=== PATIENT | male | born 1960 | race Caucasian/White ===

== ENCOUNTER → 2016-08-13 | Outpatient (CLI) | payer OTHER ==
[2016-08-13 10:26] LABS: Blood Urea Nitrogen 16 mg/dL (9-20); Lithium 0.7 mmol/L; Non-African American GFR(MDRD) >60 (>60 ml/min/1.73 sqM)
== END | disposition home or self-care (01) ==
LOC: LABWHC1 09:03
PROVIDERS: ATTEND Psychiatry & Neurology Psychiatry
DX: F31.9 Bipolar disorder, unspecified (principal)
CPT/HCPCS: 36415; 80178; 82565; 84439; 84443; 84520

== ENCOUNTER 2018-01-14 06:21 | Day surgery (SDC) | payer BC, OTHER ==
[~2018-01-14 06:21] MED LIST: ALPRAZolam 0.25 MG TAB PO PRN; ALPRAZolam 0.5 MG TAB PO PRN; ASPIRIN 325 MG TAB PO STA; ATORVASTATIN 80 MG TAB PO STA; NITROGLYCERIN SL TABS 0.4 MG TAB SUBLINGUAL PRN; SODIUM CHLORIDE 0.9% 1,000 ML in EMPTY BAG 1 BAG IV ONE
[2018-01-14] MEDS ORDERED: fentaNYL (PF) 50 MCG/ML 2 ML AMP ONE ×3 (07:30→09:44)
[2018-01-14] MEDS ORDERED: VERAPAMIL 2.5 MG/ML 2 ML AMP ONE (07:30)
[2018-01-14] MEDS ORDERED: LIDOCAINE 1% INJ 10MG/ML (20 ML MDV) ONE (07:30)
[2018-01-14] MEDS ORDERED: MIDAZOLAM 2 MG/2 ML VIAL ONE ×2 (07:30→08:21)
[2018-01-14] MEDS ORDERED: HEPARIN SODIUM 1,000 UN/ML (10ML VL) ONE (07:30)
[2018-01-14] MEDS ORDERED: LIDOCAINE 1% (PF) 10MG/ML VIAL SQ ONE (07:46)
[2018-01-14] MEDS: MIDAZOLAM 2 MG/2 ML VIAL IVP ONE ×2 (07:46→08:13)
[2018-01-14] MEDS: fentaNYL (PF) 50 MCG/ML 2 ML AMP IVP ONE ×2 (07:46→08:02)
[2018-01-14] MEDS ORDERED: BIVALIRUDIN BOLUS 250 MG/50 ML IV ONE (07:57)
[2018-01-14] MEDS ORDERED: BIVALIRUDIN 250 MG in SODIUM CHLORIDE 0.9% 50 ML IV ONE ×2 (07:57→08:33)
[2018-01-14] MEDS ORDERED: TICAGRELOR 90 MG TAB ONE (07:59)
[2018-01-14] MEDS ORDERED: TICAGRELOR 90 MG TAB PO ONE (08:01)
[2018-01-14] MEDS: NITROGLYCERIN 1000MCG/10ML SYRINGE INTRACORON ONE ×3 (08:23→08:38)
[2018-01-14] MEDS ORDERED: MIDAZOLAM 2 MG/2 ML VIAL IVP ONE (08:23)
[2018-01-14] MEDS ORDERED: fentaNYL (PF) 50 MCG/ML 2 ML AMP IVP ONE (08:23)
[2018-01-14] MEDS ORDERED: IOPAMIDOL-370 125ML BTL INJ ONE (08:37)
[2018-01-14] MEDS ORDERED: IOPAMIDOL-370 100ML BTL INJ ONE (08:40)
[2018-01-14] MEDS ORDERED: NITROGLYCERIN SL TABS 0.4 MG TAB SUBLINGUAL PRN ×2 (08:46→08:47)
[2018-01-14] MEDS ORDERED: RX INFO: IV CONTRAST WAS GIVEN 1 EACH MISC MISCELLANE PRN (08:47)
[2018-01-14] MEDS ORDERED: MAG HYDROX/AL HYDROX/SIMETH 30 ML CUP PO PRN (08:47)
[2018-01-14] MEDS ORDERED: ATROPINE SULFATE 0.1 MG/ML 10ML SYRINGE IV PRN (08:47)
[2018-01-14] MEDS ORDERED: ZOLPIDEM 5 MG TAB PO PRN (08:47)
[2018-01-14] MEDS ORDERED: SODIUM CHLORIDE 0.9% 1,000 ML IV SCH (09:00)
--- NOTE | 2018-01-14 09:18 | CC ---
CARDIAC CATHETERIZATION REPORT DATE OF SERVICE: 01/14/2018 PERFORMING PHYSICIAN: Jeremiah Mcghee MD. PROCEDURE PERFORMED: 1. Selective right and left coronary angiogram. 2. Left heart catheterization. 3. Successful stenting of the distal right coronary artery using 3.5 x 18 mm Xience drug-eluting stent with an excellent angiographic results. INDICATION: This is a pleasant 57-year-old gentleman with known history of hypertension, dyslipidemia, significant family history of coronary artery disease, as well as significant history of smoking, was experiencing chest discomfort and underwent myocardial perfusion imaging stress test that revealed inferior ischemia. Because of that, heart catheterization was advised. APPROACH: Right radial artery. COMPLICATION: None. LEVEL OF SEDATION: Moderate with sedation length of 59 minutes. PROCEDURE DESCRIPTION: After obtaining an informed consent, the patient was brought to cardiac chemical laboratory technician. The right radial artery was cannulated using micropuncture technique. A micropuncture wire passed easily, then I placed a 6-Togolese sheath in the right radial artery. After that, I gave the patient 2 mg of verapamil IA. Selective right and left coronary angiogram was performed using JR4 and JL3.5 catheters. After that, left heart catheterization was performed using 5-Togolese pigtail catheter. After that I did intervene on the right coronary artery. Please see a separate paragraph for that. SELECTIVE CORONARY ANGIOGRAM: 1. The right coronary artery is a large caliber vessel and it is a dominant vessel. The proximal right is angiographically normal. The mid right has mild disease only and the right distally has eccentric lesion, appeared to be in the range of 70%. This is just before the bifurcation of the right LOCKER ROOM MANAGER and the PLV branches which appeared to be angiographically normal. The left main is angiographically normal. It bifurcates into the circumflex and left anterior descending artery. 2. The left circumflex is a large caliber vessel and it is a nondominant vessel and has mild disease only. 3. The LAD, the proximal LAD appeared to be angiographically normal and gives rise into a large diagonal branch which appeared to be angiographically normal. The mid LAD appeared to have a plaque in the range of 60% to 70%. The LAD distally appeared to be angiographically normal. HEMODYNAMICS: The left ventricular end-diastolic pressure was 12 mmHg and no gradient was identified across the aortic valve. PCI OF THE RIGHT CORONARY ARTERY: Anticoagulation was initiated using Angiomax. Subsequently, I engaged the right using JR4 guide. I wired using a run-through wire. After that, I did balloon angioplasty using 3.0 x 12 mm balloon. I tried to advance a 3.5 x 18 mm stent but the stent will not make the turn to the distal right and because of that, I did double wire the right coronary artery using a whisper wire in addition to the run-through wire. In spite of that, I could not advance the stent on any of the wires. After that, I did wire the right coronary artery using the Ironman, and with Ironman, I was able to get the stent to distal right coronary artery where the stent was positioned under fluoroscopy guidance and deployed under 12 to 14 atmospheres for 20 seconds with the following angiogram showing good angiographic results and reduction of stenosis from 70% to 0%. The procedure at that point was completed without any complication. CONCLUSION: 1. Severe disease involving the right coronary artery. 2. Intermediate to severe disease involving the mid left anterior descending artery. 3. Successful stenting of the distal right coronary artery using 3.5 x 18 mm Xience drug-eluting stent with excellent angiographic results. POSTPROCEDURE MANAGEMENT: 1. If the patient continues to have chest discomfort, I will consider doing an FFR of the left anterior descending artery. 2. Dual anti-platelet therapy. 3. Risk factors modifications. 4. Follow up with the patient. MMEMELYNL / IJN: [id number] /
[2018-01-14] MEDS ORDERED: ACETAMINOPHEN TAB 325 MG TAB ONE (09:26)
[2018-01-14] MEDS ORDERED: fentaNYL (PF) 50 MCG/ML 2 ML AMP IV ONE (09:40)
[2018-01-14 13:52] VITALS: BMI 32.0
[2018-01-14] MEDS: ATORVASTATIN 40 MG TAB PO SCH (14:05)
[2018-01-14] MEDS: METOPROLOL SUCCINATE (ER) 50 MG TAB.ER.24H PO SCH (14:05)
[2018-01-14] MEDS: buPROPion SR 100 MG TABLET.ER PO SCH ×2 (14:05→21:53)
[2018-01-14] MEDS: ISOSORBIDE MONONITRATE ER 30 MG TAB.ER.24H PO SCH (14:05)
[2018-01-14] MEDS: LORazepam 1 MG TAB PO SCH ×2 (14:05→21:53)
[2018-01-14] MEDS: LITHIUM CARBONATE 300 MG CAP PO SCH ×2 (14:05→21:53)
[2018-01-14] MEDS: ASPIRIN 81 MG PO SCH (14:05)
[2018-01-14] MEDS: amLODIPine 2.5 MG TAB PO SCH (14:05)
[2018-01-14] MEDS: TICAGRELOR 90 MG TAB PO SCH ×2 (14:06→21:53)
[2018-01-14 20:45] VITALS: RESP 17; TEMP 97
[2018-01-15 05:35] VITALS: BP 114/71; PULSE 64
[2018-01-15 07:31] LABS: Basophils % (A) 0 %; Eosinophils # (A) 0.3 k/uL (0-0.7); Eosinophils % (A) 3 %; HCT 42.7 % (39.0-53.0); HGB 13.9 gm/dL (13.0-17.5); Lymphocytes # (A) 1.7 k/uL (1.0-4.8); Lymphocytes % (A) 18 %; MCHC 32.6 g/dL (31.0-37.0); MCV 95.2 fL (80.0-100.0); Monocytes # (A) 0.4 k/uL (0-1.0); Monocytes % (A) 4 %; Neutrophils % (A) 74 %; Platelet Count 201 k/uL (150-450); RBC 4.48 m/uL (4.30-5.90); RDW 12.6 % (11.5-15.5); WBC 9.5 k/uL (3.8-10.6)
[2018-01-15 07:39] LABS: Anion Gap 4 mmol/L; Blood Urea Nitrogen 10 mg/dL (9-20); Calcium 9.2 mg/dL (8.4-10.2); Carbon Dioxide 25 mmol/L (22-30); Chloride 109 mmol/L (98-107); Glucose 111 mg/dL (74-99); Potassium 4.4 mmol/L (3.5-5.1); Sodium 138 mmol/L (137-145)
--- NOTE | 2018-01-15 08:34 | DS ---
DISCHARGE SUMMARY ADMISSION DATE: January 14, 2018. DISCHARGE DATE: January 15, 2018 BRIEF HISTORY: This is a pleasant 57-year-old gentleman with hypertension and dyslipidemia, was experiencing chest discomfort and underwent a stress test came in to be equivocal for ischemia. Because of that, heart catheterization was advised. It did show severe disease involving the distal right coronary artery and intermediate to severe disease involving the LAD. The patient underwent successful stenting of the right coronary artery with good angiographic results. The procedure was performed from the right radial artery. He does have right good right radial pulse. The patient is going to be discharged home on dual anti-platelet therapy and I will follow up with the patient in a week in the office. MMODL / IJN: [id number] /
[2018-01-15] MEDS: buPROPion SR 100 MG TABLET.ER PO SCH (08:57)
[2018-01-15] MEDS: LITHIUM CARBONATE 300 MG CAP PO SCH (08:57)
[2018-01-15] MEDS: TICAGRELOR 90 MG TAB PO SCH (08:58)
[2018-01-15] MEDS: ATORVASTATIN 40 MG TAB PO SCH (08:58)
[2018-01-15] MEDS: ISOSORBIDE MONONITRATE ER 30 MG TAB.ER.24H PO SCH (08:58)
[2018-01-15] MEDS: LORazepam 1 MG TAB PO SCH (08:58)
[2018-01-15] MEDS: METOPROLOL SUCCINATE (ER) 50 MG TAB.ER.24H PO SCH (08:58)
[2018-01-15] MEDS: ASPIRIN 81 MG PO SCH (08:58)
[2018-01-15] MEDS: amLODIPine 2.5 MG TAB PO SCH (08:58)
== END 2018-01-15 09:08 | disposition home or self-care (01) ==
LOC: CATHCVL 06:21 → 3SCARD 12:28 → CATHCVL 01-15 09:08
PROVIDERS: ATTEND Internal Medicine Interventional Cardiology
DX: I25.110 Atherosclerotic heart disease of native coronary artery with unstable angina pectoris (principal); R94.39 Abnormal result of other cardiovascular function study; E78.00 Pure hypercholesterolemia, unspecified; I10 Essential (primary) hypertension; F31.9 Bipolar disorder, unspecified; F17.210 Nicotine dependence, cigarettes, uncomplicated; Z82.49 Family history of ischemic heart disease and other diseases of the circulatory system; Z79.82 Long term (current) use of aspirin; Z79.899 Other long term (current) drug therapy
CPT/HCPCS: 93458; 80048; 85025; C9600; C1769 ×4; C1887; C1725 ×2; C1874; C1894; J2250; S0106 ×2; J3010; J0583; J2001; Q9967 ×2

== ENCOUNTER 2019-10-23 16:13 | Inpatient (IN) | payer BC ==
--- NOTE | 2019-10-23 16:34 | ED ---
General Adult HPI - General Chief complaint: Psychiatric Symptoms Stated complaint: Mental Health Time Seen by Provider: 10/23/19 16:22 Source: patient, family, RN notes reviewed Mode of arrival: ambulatory Limitations: no limitations - History of Present Illness Initial comments: Patient is a pleasant 59-year-old male presenting to the emergency department with family with mental health concerns. Patient does have history of mental problems previously. Patient has been off his Ativan for around 10 days. Patient has also been off his lithium for possibly up to a month. Patient has not been sleeping well. Racing thoughts. Patient apparently has been agitated with family. No suicidal or homicidal thoughts. Patient did drink a small amount of alcohol today. 2 or 3 beers. No new physical complaints. - Related Data Home Medications Medication Instructions Recorded Confirmed Atorvastatin Calcium [Lipitor] 40 mg PO DAILY 01/11/18 10/23/19 Isosorbide Mononitrate [Isosorbide 30 mg PO DAILY 01/11/18 10/23/19 Mononitrate ER] Metoprolol Succinate (ER) [Toprol 50 mg PO DAILY 01/11/18 10/23/19 XL] Nitroglycerin Sl Tabs [Nitrostat] 0.4 mg SUBLINGUAL Q5M PRN 01/11/18 10/23/19 amLODIPine [Norvasc] 2.5 mg PO DAILY 01/11/18 10/23/19 buPROPion HCL [Wellbutrin SR] 200 mg PO BID 01/11/18 10/23/19 Cyclobenzaprine [Flexeril] 5 mg PO TID PRN 10/23/19 10/23/19 Gabapentin [Neurontin] 300 mg PO TID PRN 10/23/19 10/23/19 Previous Rx's Medication Instructions Recorded Aspirin 81 mg PO DAILY #90 chew 01/15/18 Allergies Allergy/AdvReac Type Severity Reaction Status Date / Time No Known Allergies Allergy Verified 10/23/19 19:56 Review of Systems ROS Statement: Those systems with pertinent positive or pertinent negative responses have been documented in the HPI. ROS Other: All systems not noted in ROS Statement are negative. Constitutional: Denies: fever Eyes: Denies: eye pain ENT: Denies: ear pain Respiratory: Denies: cough Cardiovascular: Denies: chest pain Endocrine: Denies: fatigue Gastrointestinal: Denies: abdominal pain Genitourinary: Denies: dysuria Musculoskeletal: Denies: back pain Skin: Denies: rash Neurological: Denies: headache Psychiatric: Reports: as per HPI Past Medical History Past Medical History: Chest Pain / Angina, Hyperlipidemia, Hypertension History of Any Multi-Drug Resistant Organisms: None Reported Past Surgical History: Heart Catheterization With Stent, Hernia Repair, Joint Replacement, Orthopedic Surgery Additional Past Surgical History / Comment(s): LT RONAK,rt ankle,. RT SHOULDER SX. COLONOSCOPY Past Anesthesia/Blood Transfusion Reactions: No Reported Reaction Date of Last Stent Placement:: 01-14-18 Past Psychological History: Bipolar Past Alcohol Use History: Occasional Past Drug Use History: None Reported - Past Family History Father Family Medical History: Cancer General Exam Limitations: no limitations General appearance: alert, in no apparent distress Head exam: Present: normocephalic Eye exam: Present: normal appearance Neck exam: Present: normal inspection Respiratory exam: Present: normal lung sounds bilaterally Cardiovascular Exam: Present: regular rate, normal rhythm GI/Abdominal exam: Present: soft. Absent: tenderness Extremities exam: Present: normal inspection Neurological exam: Present: alert, normal gait Psychiatric exam: Present: normal mood. Absent: homicidal ideation, suicidal ideation Skin exam: Present: normal color Course Vital Signs 10/23/19 10/23/19 10/23/19 16:16 16:59 17:43 Temperature 98.0 F Pulse Rate 103 H Pulse Rate [ 104 H Right Pulse Oximetery] Respiratory 18 18 Rate Blood Pressure 188/109 Blood Pressure 182/106 177/99 [Left Arm Sitting] O2 Sat by Pulse 98 96 Oximetry Medical Decision Making - Medical Decision Making Patient seen by mental health services with plan for admission. Positive clinical certificate completed. - Lab Data Lab Results 10/23/19 Range/Units 16:50 Urine Opiates Screen Not Detected (NotDetected) Ur Oxycodone Screen Not Detected (NotDetected) Urine Methadone Screen Not Detected (NotDetected) Ur Propoxyphene Screen Not Detected (NotDetected) Ur Barbiturates Screen Not Detected (NotDetected) U Tricyclic Antidepress Not Detected (NotDetected) Ur Phencyclidine Scrn Not Detected (NotDetected) Ur Amphetamines Screen Not Detected (NotDetected) U Methamphetamines Scrn Not Detected (NotDetected) U Benzodiazepines Scrn Not Detected (NotDetected) Urine Cocaine Screen Not Detected (NotDetected) U Marijuana (THC) Screen Not Detected (NotDetected) Disposition Clinical Impression: Psychosis Disposition: TRANSFER TO PSYCH HOSP/UNIT Is patient prescribed a controlled substance at d/c from ED?: No Referrals: None,Stated [Primary Care Provider] - 1-2 days Decision Time: 20:08
[2019-10-23] MEDS ORDERED: amLODIPine 5 MG TAB PO STA ×2 (16:51→20:34)
[2019-10-23] MEDS ORDERED: METOPROLOL TARTRATE 50 MG TAB PO STA (16:51)
[2019-10-23 17:22] LABS: Amphetamine Screen,Urine Not Detected (NotDetected); Barbiturate Screen,Urine Not Detected (NotDetected); Benzodiazepines Screen,Urine Not Detected (NotDetected); Cocaine Screen,Urine Not Detected (NotDetected); Methadone Screen, Urine Not Detected (NotDetected); Opiate Screen,Urine Not Detected (NotDetected); Oxycodone Screen, Urine Not Detected (NotDetected); Phencyclidine Screen,Urine Not Detected (NotDetected); Tricyclic Antidepressant,Urine Not Detected (NotDetected); Urn Cannabinoid Scrn Not Detected (NotDetected)
[2019-10-23] MEDS ORDERED: LORazepam 1 MG TAB PO STA (20:34)
[2019-10-23] MEDS ORDERED: MAG HYDROX/AL HYDROX/SIMETH 30 ML CUP PO PRN (20:46)
[2019-10-23] MEDS ORDERED: MAGNESIUM HYDROXIDE 2,400 MG/10 ML CUP PO PRN (20:46)
[2019-10-23] MEDS ORDERED: LORazepam 2 MG/ML INJ IM PRN (20:53)
[2019-10-23] MEDS ORDERED: LORazepam 1 MG TAB PO PRN (21:00)
[2019-10-23] MEDS: NICOTINE 14MG/24HR PATCH TRANSDERM SCH (21:26)
[2019-10-23] MEDS ORDERED: ZIPRASIDONE 20 MG VIAL IM PRN (22:00)
[2019-10-24 08:44] LABS: Basophils % (A) 1 %; Eosinophils # (A) 0.1 k/uL (0-0.7); Eosinophils % (A) 2 %; HCT 47.3 % (39.0-53.0); HGB 15.7 gm/dL (13.0-17.5); Lymphocytes # (A) 1.4 k/uL (1.0-4.8); Lymphocytes % (A) 17 %; MCH 30.1 pg (25.0-35.0); MCHC 33.1 g/dL (31.0-37.0); MCV 90.8 fL (80.0-100.0); Mean Platelet Volume 7.2; Monocytes # (A) 0.6 k/uL (0-1.0); Monocytes % (A) 7 %; Neutrophils # (A) 6.3 k/uL (1.3-7.7); Neutrophils % (A) 73 %; Platelet Count 212 k/uL (150-450); RBC 5.21 m/uL (4.30-5.90); RDW 12.1 % (11.5-15.5); WBC 8.7 k/uL (3.8-10.6)
[2019-10-24 08:58] LABS: ALT 30 U/L (4-49); AST 33 U/L (17-59); African American GFR (CKD) >90 (>60 ml/min/1.73 sqM); Albumin 4.3 g/dL (3.5-5.0); Alkaline Phosphatase 113 U/L (38-126); Anion Gap 8 mmol/L; Blood Urea Nitrogen 9 mg/dL (9-20); Calcium 9.4 mg/dL (8.4-10.2); Carbon Dioxide 23 mmol/L (22-30); Chloride 100 mmol/L (98-107); Cholesterol 122 mg/dL (<200); Glucose 122 mg/dL (74-99); HDL Cholesterol 47 mg/dL (40-60); LDL Cholesterol,Calculated 59 mg/dL (0-99); Non-African American GFR(CKD) >90 (>60 ml/min/1.73 sqM); Potassium 4.2 mmol/L (3.5-5.1); Sodium 131 mmol/L (137-145); Total Protein 6.9 g/dL (6.3-8.2); Triglycerides 79 mg/dL (<150)
[2019-10-24] MEDS: ASPIRIN 81 MG PO SCH (10:04)
[2019-10-24] MEDS: NICOTINE 14MG/24HR PATCH TRANSDERM SCH (10:04)
[2019-10-24] MEDS: ISOSORBIDE MONONITRATE ER 30 MG TAB.ER.24H PO SCH (10:05)
[2019-10-24] MEDS: ATORVASTATIN 40 MG TAB PO SCH (10:05)
[2019-10-24] MEDS: METOPROLOL SUCCINATE (ER) 50 MG TAB.ER.24H PO SCH (10:05)
[2019-10-24] MEDS: amLODIPine 2.5 MG TAB PO SCH (10:05)
[2019-10-24] MEDS: LURASIDONE 40 MG TAB PO SCH (10:07)
[2019-10-24] MEDS: ACETAMINOPHEN TAB 325 MG TAB PO PRN ×2 (11:16→23:28)
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
--- NOTE | 2019-10-24 14:48 | P.CONS ---
History of Present Illness - Reason for Consult Consult date: 10/24/19 Medical management Requesting physician: Keyanna Mcguire - Chief Complaint Mind racing - History of Present Illness Consultation: This is a pleasant 59-year-old patient of Dr. hicks. Chronic stable medical conditions include coronary artery disease with a stent in 2018, hypertension, hyperlipidemia. Patient has an ongoing diagnosis bipolar disorder. Patient started taking the lithium a few weeks ago. He thought he is feeling fine. Patient presents with dextrose symptoms. Finances parts a getting mixed up. Mind is racing. No nipple to concentrate. He is having difficulty with organizing at possible status. He and his family lives in assisted living called [facility] [place]. He has been hospitalized previously for bipolar depression. No fever no chills. Occasional wheezing. Is a smoker. Appetite has been okay otherwise Review of systems: GEN.: None EYES: None HEENT: None NECK: None RESPIRATORY: Occasional wheezing CARDIOVASCULAR: None GASTROINTESTINAL: None GENITOURINARY: None MUSCULOSKELETAL: None LYMPHATICS: None HEMATOLOGICAL: None PSYCHIATRY: As above NEUROLOGICAL: None Past medical history to include: Coronary artery disease with stent, hypertension, hyperlipidemia, bipolar. Social history: Smokes anywhere from half to a pack a day for close to 43 years. No alcohol. . He has family events assisted living called [place]. Physical examination: VITAL SIGNS: 98.2, 77, 18, 135 was 75, 99% room air GENERAL: BMI 32.8, sitting at edge of the bed, comfortable. EYES: Pupils equal. Conjunctiva normal. HEENT: External appearance of nose and ears normal, oral cavity grossly normal. NECK: JVD not raised; masses not palpable. HEART: First and second heart sounds are normal; no edema. LUNGS: Respiratory rate normal; decreased breath sounds, mild wheezing. ABDOMEN: Soft, nontender, liver spleen not palpable, no masses palpable. PSYCH: Alert and oriented x3; mood and affect a bit lowl. NEUROLOGICAL: Cranial nerves grossly intact; no facial asymmetry, power and sensation grossly intact. LYMPHATICS: No lymph nodes palpable in the axilla and neck INVESTIGATIONS, reviewed in the clinical context: White count 8.7 hemoglobin 15.7 platelets 212 potassium 4.2 creatinine 0.79 TSH 0.9 Urine drug screen negative Assessment: -Bipolar disorder with kevin episode -Coronary artery disease with stent in January 2019 -Essential hypertension -Hyperlipidemia -Obesity BMI 32.8 -COPD in a current smoker -Chronic nicotine dependence cigarette and cigar smoker Plan: Home medications were continued. Care was discussed with the patient. We'll start this patient on Spiriva while he is here. Nicotine patch. Patient to bhakti low-up with his family doctor for discharge. Thank you Dr. Mcguire Past Medical History Past Medical History: Chest Pain / Angina, Hyperlipidemia, Hypertension History of Any Multi-Drug Resistant Organisms: None Reported Past Surgical History: Heart Catheterization With Stent, Hernia Repair, Joint Replacement, Orthopedic Surgery Additional Past Surgical History / Comment(s): LT RONAK,rt ankle,. RT SHOULDER SX. COLONOSCOPY Past Anesthesia/Blood Transfusion Reactions: No Reported Reaction Date of Last Stent Placement:: 01-14-18 Past Psychological History: Bipolar Smoking Status: Current every day smoker Past Alcohol Use History: Occasional Additional Past Alcohol Use History / Comment(s): SMOKES ABOUT 1/2PPD SINCE AGE 17. states "drinks less than 14 drinks per week usually" Past Drug Use History: None Reported - Past Family History Father Family Medical History: Cancer Medications and Allergies Home Medications Medication Instructions Recorded Confirmed Type Atorvastatin Calcium [Lipitor] 40 mg PO DAILY 01/11/18 10/23/19 History Isosorbide Mononitrate [Isosorbide 30 mg PO DAILY 01/11/18 10/23/19 History Mononitrate ER] Metoprolol Succinate (ER) [Toprol 50 mg PO DAILY 01/11/18 10/23/19 History XL] Nitroglycerin Sl Tabs [Nitrostat] 0.4 mg SUBLINGUAL Q5M PRN 01/11/18 10/23/19 History amLODIPine [Norvasc] 2.5 mg PO DAILY 01/11/18 10/23/19 History buPROPion HCL [Wellbutrin SR] 200 mg PO BID 01/11/18 10/23/19 History Aspirin 81 mg PO DAILY #90 chew 01/15/18 10/23/19 Rx [place] Carbonate [[place] 300 mg PO BID 10/23/19 10/23/19 History Carbonate ER] Allergies Allergy/AdvReac Type Severity Reaction Status Date / Time No Known Allergies Allergy Verified 10/23/19 21:39 Physical Exam Vitals: Vital Signs Temp Pulse Pulse Resp BP BP Pulse Ox 10/24/19 06:55 98.2 F 83 16 145/82 99 10/23/19 21:06 97.1 F L 82 16 145/83 96 10/23/19 20:20 78 160/98 10/23/19 17:43 177/99 10/23/19 16:59 104 H 18 182/106 96 10/23/19 16:16 98.0 F 103 H 18 188/109 98 Intake and Output 10/23/19 10/24/19 10/24/19 22:59 06:59 14:59 Other: Weight 106.594 kg Results CBC & Chem 7: 10/24/19 08:17 10/24/19 08:17 Labs: Abnormal Lab Results - Last 24 Hours (Table) 10/24/19 Range/Units 08:17 Sodium 131 L (137-145) mmol/L Glucose 122 H (74-99) mg/dL
[2019-10-24] MEDS: NICOTINE 21MG/24HR PATCH TRANSDERM SCH (15:33)
[2019-10-24] MEDS: ALBUTEROL HFA INHALER INHALATION SCH (20:48)
--- NOTE | 2019-10-25 09:14 | P.PN ---
Subjective Progress Note Date: 10/25/19 Principal diagnosis: Bipolar 1 manic Subjective: The patient says he slept well and he talked his last night and felt he was making more sense says he feels less depressed little bit more upbeat Objective: The patient did go to groups but had to leave early because he was so tired. When he was compliant talking with peers and staff but mostly quiet and withdrawn Vital signs: Temperature 97.8 heart rate 73 respirations 16 blood pressure 142/78 O2 sat 99 Labs: Hematology was fine general chemistry shows sugar slightly up at 122 urine tox was negative Mental status exam: The patient is alert gait and station normal affect somewhat flat good eye contact reasonable response time he is not making comments about random distractions in the room and did a better job of staying on topic. He denies any hallucinations or delusions says he still a little depressed but bet ter than he was. He is dressed in hospital gown but he asked his to bring in some more clothes for him. Assessment patient is already responding to 40 mg of Latuda which I chose because it does not seem to make diabetes worse and works rapidly on manic symptoms. I don't think he should go back on lithium he been on it for a long period of time starting to get older which makes it somewhat unsafe. Plan continue the Latuda I think in a day or 2 he should be calm enough for discharge Objective - Vital Signs Vital signs: Vital Signs Temp 97.8 F 10/25/19 06:28 Pulse 73 10/25/19 06:28 Resp 16 10/25/19 06:28 BP 142/78 10/25/19 06:28 Pulse Ox 99 10/24/19 06:55 - Labs CBC & Chem 7: 10/24/19 08:17 10/24/19 08:17
[2019-10-25] MEDS: ALBUTEROL HFA INHALER INHALATION SCH ×3 (09:24→20:11)
[2019-10-25] MEDS: amLODIPine 2.5 MG TAB PO SCH (09:25)
[2019-10-25] MEDS: ASPIRIN 81 MG PO SCH (09:25)
[2019-10-25] MEDS: NICOTINE 21MG/24HR PATCH TRANSDERM SCH (09:26)
[2019-10-25] MEDS: LURASIDONE 40 MG TAB PO SCH (09:26)
[2019-10-25] MEDS: METOPROLOL SUCCINATE (ER) 50 MG TAB.ER.24H PO SCH (09:26)
[2019-10-25] MEDS: ISOSORBIDE MONONITRATE ER 30 MG TAB.ER.24H PO SCH (09:26)
[2019-10-25] MEDS: ATORVASTATIN 40 MG TAB PO SCH (09:26)
[2019-10-26] MEDS: amLODIPine 2.5 MG TAB PO SCH (06:29)
[2019-10-26] MEDS: METOPROLOL SUCCINATE (ER) 50 MG TAB.ER.24H PO SCH (06:29)
[2019-10-26] MEDS: ISOSORBIDE MONONITRATE ER 30 MG TAB.ER.24H PO SCH (06:30)
[2019-10-26] MEDS: ALBUTEROL HFA INHALER INHALATION SCH ×3 (09:12→19:35)
[2019-10-26] MEDS: ATORVASTATIN 40 MG TAB PO SCH (09:13)
[2019-10-26] MEDS: ASPIRIN 81 MG PO SCH (09:13)
[2019-10-26] MEDS: LURASIDONE 40 MG TAB PO SCH (09:13)
[2019-10-26] MEDS: NICOTINE 21MG/24HR PATCH TRANSDERM SCH (09:13)
[2019-10-26] MEDS ORDERED: LURASIDONE 20 MG TAB PO ONE (10:30)
[2019-10-26] MEDS: LORazepam 1 MG TAB PO PRN (20:08)
[2019-10-26] MEDS ORDERED: amLODIPine 5 MG TAB PO SCH (21:00)
[2019-10-26 22:47] VITALS: RESP 18
[2019-10-27 02:10] VITALS: TEMP 98.2
[2019-10-27] MEDS: LORazepam 1 MG TAB PO PRN (04:36)
[2019-10-27] MEDS: ALBUTEROL HFA INHALER INHALATION SCH (08:34)
[2019-10-27] MEDS: NICOTINE 21MG/24HR PATCH TRANSDERM SCH (08:37)
[2019-10-27] MEDS: ASPIRIN 81 MG PO SCH (08:38)
[2019-10-27] MEDS: ISOSORBIDE MONONITRATE ER 30 MG TAB.ER.24H PO SCH (08:38)
[2019-10-27] MEDS: METOPROLOL SUCCINATE (ER) 50 MG TAB.ER.24H PO SCH (08:38)
[2019-10-27] MEDS: ATORVASTATIN 40 MG TAB PO SCH (08:38)
[2019-10-27] MEDS ORDERED: LURASIDONE 20 MG TAB PO SCH (09:00)
[2019-10-27 10:30] VITALS: BP 163/91; PULSE 73
--- NOTE | 2019-10-27 11:43 | P.DS ---
Providers Date of admission: 10/23/19 20:38 Expected date of discharge: 10/27/19 Attending physician: Keyanna Mcguire MD Consults: 10/23/19 20:46 Consult Physician Routine Consulting Provider: Yves Phipps Consult Reason/Comments: H&P and medical and HTN Do you want consulting provider notified?: Yes Primary care physician: Kd Mayfield - Discharge Diagnosis(es) (1) Bipolar 1 disorder Current Visit: Yes Status: Acute Priority: High (2) Nicotine dependence Current Visit: Yes Status: Acute Priority: Low Hospital Course: Admission HPI: Patient was admitted by Dr. Mcguire "Patient is a pleasant 59-year-old male presenting to the emergency department with family with mental health concerns. Patient does have history of being diagnosed with bipolar disorder. Patient has been off his Ativan for around 10 days. Patient has also been off his lithium for possibly up to a month. He said that he was told that if you haven't had a manic episode for 5 years you do not need to take lithium. Patient has not been sleeping well. Racing thoughts. Patient apparently has been agitated with family. No suicidal or homicidal thoughts. 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 Patient did drink a small amount of alcohol today. 2 or 3 beers. The only thing the patient is aware of is that he cannot organize any cannot organize his speech or his tasks or where things belong. He says he is able to sleep okay however his perception of his function is impaired. Patient is supposed to be on Wellbutrin SR 200 twice a day but he does forget doses from time to time, Flexeril 5 milligrams 3 times a day as needed for aches and pains he has not been using that lately because of back pain seem to vanish a week ago.(I think he is racing brain is not able to focus on his aches and pains which is typical for people in a manic state), Neurontin 300 3 times a day, and lithium which he has not been taking , and Ativan which he ran out of 10 days ago and at his age it would be goncalves for him just to stay off of it. The patient had his first major episode in 1984 diagnosed with major depressive disorder and started on Tofranil. He was rehospitalized for depression in 197908/27/1995 and 2000. So more along the line he picked up the diagnosis of bipolar but denies that he was ever manic cannot remember any time where he didn't need to sleep. He cannot remember what medicines he has been tried on in the past other than the Tofranil and the current medicines." Hospital course: Upon admission to the unit patient was initially withdrawing from his medications, having racing thoughts and apparently agitated at home. Patient was however directable and agreeable to commence treatment. Patient got along well with other patients on the unit and followed unit protocol. Patient was compliant with the medications and denied any side effects throughout hospital course. Patient was started on latuda and titrated up to dose of 60 mg daily with breakfast for mood stabilization/depression, patient was also re-started on Ativan 1 mg daily when necessary for anxiety. Patient spoke of his stressors and engaged in therapy both group and individual. Patient was also seen by medical team for history and physical exam. Throughout the course of the hosp italization patient gradually improved with regards to mood, anxiety, sleep and became more future oriented with improved insight and judgment. On the day of discharge patient denied any suicidal or homicidal ideations intent or plan denied any auditory or visual hallucinations. Patient endorsed wanting to live for his health and family. The patient denied any access to guns or weapons. Patient denied any paranoia and did not endorse any delusions. Patient does not have a significant history of substance abuse however was counseled on abstaining from all substances including alcohol and marijuana. Patient was also counseled on the medications and need for regular compliance and was encouraged to follow-up with their outpatient appointment for mental health and also for primary care. Prior to discharge a family meeting will be arranged by director of social services to answer any questions and ensure safety upon discharge. Patient will be following up with [facility] for outpatient psychiatric follow-up. Mental status exam: General Appearance: Patient appears to be stated age is alert, pleasant, and cooperative. Patient is in no acute distress and has fair hygiene and grooming Behavior: Patient is calmly seated without any agitated behavior. Cooperative today. Speech: Patient's speech is fluent and nonpressured. Mood/Affect: Patient reports their mood is "much better", affect is congruent a nd euthymic. Suicidality/Homicidality: Patient denies having any suicidal or homicidal ideation intent or plan. Perceptions: Patient denies any auditory or visual hallucinations. Though content/process: There is no evidence of any delusional thought content and thought process is linear and goal-directed. more future oriented Memory and concentration: AOX3, grossly intact for the purposes of this session. Can spell "WORLD" backwards correctly. Judgment and insight: Improved with guarded prognosis Impression: Bipolar disorder type I Nicotine dependence Plan: -Continue with discharge today as patient has improved and stabilized psychiatrically and is not currently an imminent threat to himself and/or others. -Continue medications: Patient to be continued on LAtuda 60mg daily with br eakfast for mood stabilization/depression. We'll also give patient a 10 day supply of Ativan 1 mg daily when necessary for anxiety. This will give enough time for patient to go to his outpatient appointment to continue on with treatment. Maps was reviewed prior to giving prescription. -Patient was counseled on the need for medication compliance and appropriate follow-up at mental health and also primary care for medical issues. Patient verbalized understanding and agreed. -Social work to arrange for and conduct family meeting to ensure safety upon discharge and answer any questions/concerns. Social work also to arrange for patients follow up appointments with [facility] for psychiatric care along with follow up with primary care provider. -Patient counseled on abstaining from recreational drugs and marijuana and alcohol. Was informed/educated on the adverse effects on their physical and mental health. Patient verbally agreed and understood. -Patient was instructed to return to the hospital or seek immediate medical care if their psychiatric or medical symptoms do worsen or reoccur. Allergies Allergy/AdvReac Type Severity Reaction Status Date / Time No Known Allergies Allergy Verified 10/23/19 21:39 Laboratory Results WBC 8.7 k/uL (3.8-10.6) 10/24/19 08:17 RBC 5.21 m/uL (4.30-5.90) 10/24/19 08:17 Hgb 15.7 gm/dL (13.0-17.5) 10/24/19 08:17 Hct 47.3 % (39.0-53.0) 10/24/19 08:17 MCV 90.8 fL (80.0-100.0) 10/24/19 08:17 MCH 30.1 pg (25.0-35.0) 10/24/19 08:17 MCHC 33.1 g/dL (31.0-37.0) 10/24/19 08:17 RDW 12.1 % (11.5-15.5) 10/24/19 08:17 Plt Count 212 k/uL (150-450) 10/24/19 08:17 Neutrophils % 73 % 10/24/19 08:17 Lymphocytes % 17 % 10/24/19 08:17 Monocytes % 7 % 10/24/19 08:17 Eosinophils % 2 % 10/24/19 08:17 Basophils % 1 % 10/24/19 08:17 Neutrophils # 6.3 k/uL (1.3-7.7) 10/24/19 08:17 Lymphocytes # 1.4 k/uL (1.0-4.8) 10/24/19 08:17 Monocytes # 0.6 k/uL (0-1.0) 10/24/19 08:17 Eosinophils # 0.1 k/uL (0-0.7) 10/24/19 08:17 Basophils # 0.0 k/uL (0-0.2) 10/24/19 08:17 Sodium 131 mmol/L (137-145) L 10/24/19 08:17 Potassium 4.2 mmol/L (3.5-5.1) 10/24/19 08:17 Chloride 100 mmol/L (98-107) 10/24/19 08:17 Carbon Dioxide 23 mmol/L (22-30) 10/24/19 08:17 Anion Gap 8 mmol/L 10/24/19 08:17 BUN 9 mg/dL (9-20) 10/24/19 08:17 Creatinine 0.79 mg/dL (0.66-1.25) 10/24/19 08:17 Est GFR (CKD-EPI)AfAm >90 (>60 ml/min/1.73 sqM) 10/24/19 08:17 Est GFR (CKD-EPI)NonAf >90 (>60 ml/min/1.73 sqM) 10/24/19 08:17 Glucose 122 mg/dL (74-99) H 10/24/19 08:[address] Glu mg/dL 126 10/24/19 08:17 Hemoglobin A1c 6.0 % (4.0-6.0) 10/24/19 08:17 Calcium 9.4 mg/dL (8.4-10.2) 10/24/19 08:17 Total Bilirubin 1.0 mg/dL (0.2-1.3) 10/24/19 08:17 AST 33 U/L (17-59) 10/24/19 08:17 ALT 30 U/L (4-49) 10/24/19 08:17 Alkaline Phosphatase 113 U/L (38-126) 10/24/19 08:17 Total Protein 6.9 g/dL (6.3-8.2) 10/24/19 08:17 Albumin 4.3 g/dL (3.5-5.0) 10/24/19 08:17 Triglycerides 79 mg/dL (<150) 10/24/19 08:17 Cholesterol 122 mg/dL (<200) 10/24/19 08:17 LDL Cholesterol, Calc 59 mg/dL (0-99) 10/24/19 08:17 HDL Cholesterol 47 mg/dL (40-60) 10/24/19 08:17 TSH 0.968 mIU/L (0.465-4.680) 10/24/19 08:17 Urine Opiates Screen Not Detected (NotDetected) 10/23/19 16:50 Ur Oxycodone Screen Not Detected (NotDetected) 10/23/19 16:50 Urine Methadone Screen Not Detected (NotDetected) 10/23/19 16:50 Ur Propoxyphene Screen Not Detected (NotDetected) 10/23/19 16:50 Ur Barbiturates Screen Not Detected (NotDetected) 10/23/19 16:50 U Tricyclic Antidepress Not Detected (NotDetected) 10/23/19 16:50 Ur Phencyclidine Scrn Not Detected (NotDetected) 10/23/19 16:50 Ur Amphetamines Screen Not Detected (NotDetected) 10/23/19 16:50 U Methamphetamines Scrn Not Detected (NotDetected) 10/23/19 16:50 U Benzodiazepines Scrn Not Detected (NotDetected) 10/23/19 16:50 Urine Cocaine Screen Not Detected (NotDetected) 10/23/19 16:50 U Marijuana (THC) Screen Not Detected (NotDetected) 10/23/19 16:50 Vital Signs Temp 98.2 F 10/27/19 02:09 Pulse 73 10/27/19 10:29 Resp 18 10/27/19 02:09 BP 163/91 10/27/19 10:29 Pulse Ox 99 10/24/19 06:55 Patient Condition at Discharge: Stable Plan - Discharge Summary Discharge Rx Participant: No New Discharge Prescriptions: New LORazepam [Ativan] 1 mg PO DAILY PRN 10 Days #10 tab PRN Reason: Anxiety Nicotine 21Mg/24Hr Patch [Habitrol] 1 patch TRANSDERM DAILY 14 Days patch Lurasidone HCl [Latuda] 60 mg PO DAILY 30 Days tab amLODIPine [Norvasc] 5 mg PO HS 30 Days tab Acetaminophen Tab [Tylenol] 650 mg PO Q4HR PRN tab PRN Reason: Pain/Discomfort Albuterol Inhaler [Ventolin Hfa Inhaler] 2 puff INHALATION RT-TID #0 puff Continue Nitroglycerin Sl Tabs [Nitrostat] 0.4 mg SUBLINGUAL Q5M PRN PRN Reason: Chest Pain Metoprolol Succinate (ER) [Toprol XL] 50 mg PO DAILY Isosorbide Mononitrate [Isosorbide Mononitrate ER] 30 mg PO DAILY Atorvastatin Calcium [Lipitor] 40 mg PO DAILY Aspirin 81 mg PO DAILY #90 chew Discontinued amLODIPine [Norvasc] 2.5 mg PO DAILY buPROPion HCL [Wellbutrin SR] 200 mg PO BID Santel Carbonate [Santel Carbonate ER] 300 mg PO BID Discharge Medication List Atorvastatin Calcium [Lipitor] 40 mg PO DAILY 01/11/18 [History] Isosorbide Mononitrate [Isosorbide Mononitrate ER] 30 mg PO DAILY 01/11/18 [History] Metoprolol Succinate (ER) [Toprol XL] 50 mg PO DAILY 01/11/18 [History] Nitroglycerin Sl Tabs [Nitrostat] 0.4 mg SUBLINGUAL Q5M PRN 01/11/18 [History] Aspirin 81 mg PO DAILY #90 chew 01/15/18 [Rx] Acetaminophen Tab [Tylenol] 650 mg PO Q4HR PRN tab 10/27/19 [Rx] Albuterol Inhaler [Ventolin Hfa Inhaler] 2 puff INHALATION RT-TID #0 puff 10/27/19 [Rx] LORazepam [Ativan] 1 mg PO DAILY PRN 10 Days #10 tab 10/27/19 [Rx] Lurasidone HCl [Latuda] 60 mg PO DAILY 30 Days tab 10/27/19 [Rx] Nicotine 21Mg/24Hr Patch [Habitrol] 1 patch TRANSDERM DAILY 14 Days patch 10/27/19 [Rx] amLODIPine [Norvasc] 5 mg PO HS 30 Days tab 10/27/19 [Rx] Follow up Appointment(s)/Referral(s): [facility]Outside] - 11/02/19 2:00 pm (Appointment 11/02/19 at 2 pm with Jeffrey Martin.) None,Stated [REFERRING] - 1-2 days Activity/Diet/Wound Care/Special Instructions: Activity and diet as tolerated. Avoid the use of street drugs and alcohol. Take all medications as prescribed. When you are in need of refills on your medications please contact your medical provider and/or outpatient psychiatrist to have this done. Please go to scheduled outpatient appointment for aftercare treatment. If symptoms return or become worse, call the crisis line at and/or go to the nearest emergency room for evaluation. Discharge Disposition: HOME SELF-CARE
== END 2019-10-27 12:57 | disposition home or self-care (01) | DRG 885 ==
LOC: EC 16:13 → 3MHU 20:38
PROVIDERS: ADMIT Psychiatry & Neurology Psychiatry; ATTEND Psychiatry & Neurology Psychiatry
DX: F31.2 Bipolar disorder, current episode manic severe with psychotic features (principal); E66.9 Obesity, unspecified; F41.9 Anxiety disorder, unspecified; E78.5 Hyperlipidemia, unspecified; I10 Essential (primary) hypertension; M54.9 Dorsalgia, unspecified; Z68.32 Body mass index [BMI] 32.0-32.9, adult; J44.9 Chronic obstructive pulmonary disease, unspecified; I25.10 Atherosclerotic heart disease of native coronary artery without angina pectoris; F17.210 Nicotine dependence, cigarettes, uncomplicated; F17.290 Nicotine dependence, other tobacco product, uncomplicated; Z71.6 Tobacco abuse counseling; Z79.82 Long term (current) use of aspirin; Z79.899 Other long term (current) drug therapy; Z95.5 Presence of coronary angioplasty implant and graft; Z96.641 Presence of right artificial hip joint; Z87.19 Personal history of other diseases of the digestive system; Z87.39 Personal history of other diseases of the musculoskeletal system and connective tissue; Z98.890 Other specified postprocedural states
CPT/HCPCS: 80053; 80061; 80306; 82075; 83036; 84443; 85025; 99285

== ENCOUNTER 2019-11-18 19:41 | Emergency (ER) | payer BC ==
[2019-11-18 20:00] VITALS: RESP 18; TEMP 97.5
--- NOTE | 2019-11-18 21:28 | ED ---
General Adult HPI - General Chief complaint: Recheck/Abnormal Lab/Rx Stated complaint: HTN Time Seen by Provider: 11/18/19 20:02 Source: patient Mode of arrival: ambulatory Limitations: no limitations - History of Present Illness Initial comments: 59-year-old male patient is brought to the emergency department today at the request of his for psychiatric evaluation. believes the patient is acting very fearful, paranoid, and suspicious. Is concerned his actions are causing his blood pressure to increase. Patient reports that he wanted to be weaned off his psychiatric medication because he had been taking it a long time and he thought maybe it was no longer necessary. States he started the process about a month ago. Patient believes that his symptoms are increasing due to withdrawal symptoms rather than due to a need for medication. Patient states that he has been having a lot of social anxiety, has been fearful of going to the doctor due to there being a lot of "cars with their lights on" in the parkinglot. He states that he believes he may be being stalked by another psychiatric patient he met when admitted to at his last admission. He reports that todays argument with his started when he was "praying in colors over the veterans at the local [place]". Patient states that he is having some trouble sleeping. Denies any suicidal or homicidal ideation. He believes that his actions and reactions to situations are reasonable. He denies any current physical symptoms or concerns. Patient denies any recent rash, fever, chills, cough, shortness of breath, chest pain, abdominal pain, nausea, vomiting, diarrhea, constipation, back pain, numbness, tingling, dizziness, weakness, hematuria, dysuria, urinary urgency, urinary frequency, headache, visual changes, or any other complaints. - Related Data Home Medications Medication Instructions Recorded Confirmed Atorvastatin Calcium [Lipitor] 40 mg PO DAILY 01/11/18 10/23/19 Isosorbide Mononitrate [Isosorbide 30 mg PO DAILY 01/11/18 10/23/19 Mononitrate ER] Metoprolol Succinate (ER) [Toprol 50 mg PO DAILY 01/11/18 10/23/19 XL] Nitroglycerin Sl Tabs [Nitrostat] 0.4 mg SUBLINGUAL Q5M PRN 01/11/18 10/23/19 Previous Rx's Medication Instructions Recorded Aspirin 81 mg PO DAILY #90 chew 01/15/18 Acetaminophen Tab [Tylenol] 650 mg PO Q4HR PRN tab 10/27/19 Albuterol Inhaler [Ventolin Hfa 2 puff INHALATION RT-TID #0 puff 10/27/19 Inhaler] LORazepam [Ativan] 1 mg PO DAILY PRN 10 Days #10 tab 10/27/19 Lurasidone HCl [Latuda] 60 mg PO DAILY 30 Days tab 10/27/19 Nicotine 21Mg/24Hr Patch [Habitrol] 1 patch TRANSDERM DAILY 14 Days 10/27/19 patch amLODIPine [Norvasc] 5 mg PO HS 30 Days tab 10/27/19 Allergies Allergy/AdvReac Type Severity Reaction Status Date / Time No Known Allergies Allergy Verified 11/18/19 20:00 Review of Systems ROS Statement: Those systems with pertinent positive or pertinent negative responses have been documented in the HPI. ROS Other: All systems not noted in ROS Statement are negative. Past Medical History Past Medical History: Chest Pain / Angina, Hyperlipidemia, Hypertension History of Any Multi-Drug Resistant Organisms: None Reported Past Surgical History: Heart Catheterization With Stent, Hernia Repair, Joint Replacement, Orthopedic Surgery Additional Past Surgical History / Comment(s): LT RONAK,rt ankle,. RT SHOULDER SX. COLONOSCOPY Past Anesthesia/Blood Transfusion Reactions: No Reported Reaction Date of Last Stent Placement:: 01-14-18 Past Psychological History: Bipolar Smoking Status: Current every day smoker Past Alcohol Use History: Occasional Past Drug Use History: None Reported - Past Family History Father Family Medical History: Cancer General Exam Limitations: no limitations General appearance: alert, in no apparent distress, other (This is a well- developed, well-nourished adult male patient in no acute distress. Vital signs upon presentation are temperature 97.5F, pulse 83, respirations 18, blood pressure 186/111, pulse ox 99% on room air.) Eye exam: Present: normal appearance, PERRL, EOMI. Absent: scleral icterus, conjunctival injection, periorbital swelling ENT exam: Present: normal exam, normal oropharynx, mucous membranes moist Respiratory exam: Present: normal lung sounds bilaterally. Absent: respiratory distress, wheezes, rales, rhonchi, stridor Cardiovascular Exam: Present: regular rate, normal rhythm, normal heart sounds. Absent: systolic murmur, diastolic murmur, rubs, gallop, clicks GI/Abdominal exam: Present: soft, normal bowel sounds. Absent: distended, tenderness, guarding, rebound, rigid Neurological exam: Present: alert, oriented X3, CN II-XII intact Psychiatric exam: Present: normal affect, normal mood. Absent: homicidal ideation, suicidal ideation Skin exam: Present: warm, dry, intact, normal color. Absent: rash Course Vital Signs 11/18/19 11/18/19 19:56 21:31 Temperature 97.5 F L Pulse Rate 83 87 Respiratory 18 18 Rate Blood Pressure 186/111 184/101 O2 Sat by Pulse 99 98 Oximetry Medical Decision Making - Medical Decision Making 59-year-old male patient is brought to the emergency department for psychiatric evaluation at the request of his . She did fill out a petition and was quite concerned that he is experiencing a lot of paranoia, delusions, and has been very fearful. She is also concerned due to his blood pressure. Physical examination is unremarkable. Blood pressure is elevated, we did give a dose of his home medication. Patient is very calm and cooperative. He denies any suicidal or homicidal ideation. Patient does express some situations in which he may be paranoid and unreasonably fearful but the situations do not seem to be dangerous for him. Patient was cleared medically and evaluated by emergency psychiatric services. The case was discussed with the agricultural education instructor psychiatrist and it is felt that the patient would be better served by outpatient follow up. Patient does not seem to be a threat to himself or others at this time. He will be discharged to follow up with Dr. Mayfield in 1-2 days. He is also directed to obtain a new psychiatrist. Patient is agreeable with this plan and verbalizes understanding of return parameters. Disposition Clinical Impression: Anxiety, Paranoia Disposition: HOME SELF-CARE Condition: Good Instructions (If sedation given, give patient instructions): Generalized Anxiety Disorder (ED) Additional Instructions: Follow-up with your primary care physician for recheck as soon as possible. Return to the emergency department immediately for any new, worsening, or concerning symptoms. Is patient prescribed a controlled substance at d/c from ED?: No Referrals: Kd Mayfield MD [Primary Care Provider] - 1-2 days Time of Disposition: 21:38
[2019-11-18 21:32] VITALS: BP 184/101; PULSE 87
[2019-11-18] MEDS ORDERED: amLODIPine 5 MG TAB PO STA (21:36)
== END 2019-11-18 21:52 | disposition home or self-care (01) ==
LOC: EC 19:41
DX: F41.9 Anxiety disorder, unspecified (principal); F22 Delusional disorders; I10 Essential (primary) hypertension; E78.5 Hyperlipidemia, unspecified; I20.9 Angina pectoris, unspecified; F17.200 Nicotine dependence, unspecified, uncomplicated; Z79.899 Other long term (current) drug therapy
CPT/HCPCS: 82075; 99284

== ENCOUNTER 2019-11-19 15:44 | Emergency (ER) | payer BC ==
--- NOTE | 2019-11-19 16:06 | ED ---
Psych HPI - General Chief Complaint: Psychiatric Symptoms Stated Complaint: ETOH/bipolar Time Seen by Provider: 11/19/19 16:00 Source: EMS, RN notes reviewed, old records reviewed Mode of arrival: EMS Limitations: no limitations - History of Present Illness Initial Comments: This is a 59-year-old male to the ER for evaluation positive alcohol intoxicati on, patient states he has bipolar but denying homicidal or suicidal thoughts. Patient's poor historian secondary to clinical condition and state MD Complaint: feels depressed, altered mental status -: minutes(s) Associated Psychiatric Symptoms: depression, racing thoughts, delusions Quality: constant Improves With: none Worsens With: none Context: recent alcohol abuse, not taking psychiatric medications Treatments Prior to Arrival: placed on mental health hold - Related Data Home Medications Medication Instructions Recorded Confirmed Atorvastatin Calcium [Lipitor] 40 mg PO DAILY 01/11/18 10/23/19 Isosorbide Mononitrate [Isosorbide 30 mg PO DAILY 01/11/18 10/23/19 Mononitrate ER] Metoprolol Succinate (ER) [Toprol 50 mg PO DAILY 01/11/18 10/23/19 XL] Nitroglycerin Sl Tabs [Nitrostat] 0.4 mg SUBLINGUAL Q5M PRN 01/11/18 10/23/19 Previous Rx's Medication Instructions Recorded Aspirin 81 mg PO DAILY #90 chew 01/15/18 Acetaminophen Tab [Tylenol] 650 mg PO Q4HR PRN tab 10/27/19 Albuterol Inhaler [Ventolin Hfa 2 puff INHALATION RT-TID #0 puff 10/27/19 Inhaler] LORazepam [Ativan] 1 mg PO DAILY PRN 10 Days #10 tab 10/27/19 Lurasidone HCl [Latuda] 60 mg PO DAILY 30 Days tab 10/27/19 Nicotine 21Mg/24Hr Patch [Habitrol] 1 patch TRANSDERM DAILY 14 Days 10/27/19 patch amLODIPine [Norvasc] 5 mg PO HS 30 Days tab 10/27/19 Allergies Allergy/AdvReac Type Severity Reaction Status Date / Time No Known Allergies Allergy Verified 11/18/19 20:00 Review of Systems ROS Statement: Those systems with pertinent positive or pertinent negative responses have been documented in the HPI. ROS Other: All systems not noted in ROS Statement are negative. Past Medical History Past Medical History: Chest Pain / Angina, Hyperlipidemia, Hypertension History of Any Multi-Drug Resistant Organisms: None Reported Past Surgical History: Heart Catheterization With Stent, Hernia Repair, Joint Replacement, Orthopedic Surgery Additional Past Surgical History / Comment(s): LT RONAK,rt ankle,. RT SHOULDER SX. COLONOSCOPY Past Anesthesia/Blood Transfusion Reactions: No Reported Reaction Date of Last Stent Placement:: 01-14-18 Past Psychological History: Bipolar Smoking Status: Current every day smoker Past Alcohol Use History: Occasional Past Drug Use History: None Reported - Past Family History Father Family Medical History: Cancer General Exam Limitations: no limitations General appearance: alert, appears intoxicated, anxious Head exam: Present: atraumatic, normocephalic, normal inspection Eye exam: Present: normal appearance, PERRL, EOMI. Absent: scleral icterus, conjunctival injection, periorbital swelling ENT exam: Present: normal exam, mucous membranes moist Neck exam: Present: normal inspection. Absent: tenderness, meningismus, lymphadenopathy Respiratory exam: Present: normal lung sounds bilaterally. Absent: respiratory distress, wheezes, rales, rhonchi, stridor Cardiovascular Exam: Present: regular rate, normal rhythm, normal heart sounds. Absent: systolic murmur, diastolic murmur, rubs, gallop, clicks GI/Abdominal exam: Present: soft, normal bowel sounds. Absent: distended, tenderness, guarding, rebound, rigid Extremities exam: Present: normal inspection, full ROM, normal capillary refill. Absent: tenderness, pedal edema, joint swelling, calf tenderness Back exam: Present: normal inspection Neurological exam: Present: alert, oriented X3, CN II-XII intact Psychiatric exam: Present: normal affect, normal mood Skin exam: Present: warm, dry, intact, normal color. Absent: rash Course Vital Signs 11/19/19 15:46 Temperature 98.1 F Pulse Rate 63 Respiratory 16 Rate Blood Pressure 170/101 O2 Sat by Pulse 93 L Oximetry - Reevaluation(s) Reevaluation #1: 11/19/19 16:06 Medical records reviewed Reevaluation #2: 11/19/19 18:41 Patient is made medically clear for psychiatric evaluation Reevaluation #3: 11/19/19 18:41 Patient seen and evaluated by psychiatry deemed safe for discharge Medical Decision Making - Medical Decision Making 59 male for psychiatric evaluation, patient will be discharged home seen in however psychiatry not homicidal or suicidal - Lab Data Result diagrams: 11/19/19 16:02 11/19/19 16:02 Lab Results 11/19/19 11/19/19 11/19/19 Range/Units 16:02 16:02 16:02 WBC 11.5 H (3.8-10.6) k/uL RBC 4.78 (4.30-5.90) m/uL Hgb 15.1 (13.0-17.5) gm/dL Hct 43.7 (39.0-53.0) % MCV 91.3 (80.0-100.0) fL MCH 31.6 (25.0-35.0) pg MCHC 34.6 (31.0-37.0) g/dL RDW 12.1 (11.5-15.5) % Plt Count 201 (150-450) k/uL Neutrophils % 72 % Lymphocytes % 19 % Monocytes % 5 % Eosinophils % 3 % Basophils % 1 % Neutrophils # 8.2 H (1.3-7.7) k/uL Lymphocytes # 2.2 (1.0-4.8) k/uL Monocytes # 0.5 (0-1.0) k/uL Eosinophils # 0.3 (0-0.7) k/uL Basophils # 0.1 (0-0.2) k/uL Sodium 129 L (137-145) mmol/L Potassium 4.2 (3.5-5.1) mmol/L Chloride 104 (98-107) mmol/L Carbon Dioxide 19 L (22-30) mmol/L Anion Gap 6 mmol/L BUN 9 (9-20) mg/dL Creatinine 0.67 (0.66-1.25) mg/dL Est GFR (CKD-EPI)AfAm >90 (>60 ml/min/1.73 sqM) Est GFR (CKD-EPI)NonAf >90 (>60 ml/min/1.73 sqM) Glucose 96 (74-99) mg/dL Calcium 8.8 (8.4-10.2) mg/dL Urine Color Light Yellow Urine Appearance Clear (Clear) Urine pH 5.0 (5.0-8.0) Ur Specific [place] 1.006 (1.001-1.035) Urine Protein Negative (Negative) Urine Glucose (UA) Negative (Negative) Urine Ketones Negative (Negative) Urine Blood Trace H (Negative) Urine Nitrite Negative (Negative) Urine Bilirubin Negative (Negative) Urine Urobilinogen <2.0 (<2.0) mg/dL Ur Leukocyte Esterase Negative (Negative) Urine WBC 1 (0-5) /hpf Urine Mucus Rare H (None) /hpf Salicylates <1.0 mg/dL Urine Opiates Screen Not Detected (NotDetected) Ur Oxycodone Screen Not Detected (NotDetected) Urine Methadone Screen Not Detected (NotDetected) Ur Propoxyphene Screen Not Detected (NotDetected) Acetaminophen <10.0 ug/mL Ur Barbiturates Screen Not Detected (NotDetected) U Tricyclic Antidepress Not Detected (NotDetected) Ur Phencyclidine Scrn Not Detected (NotDetected) Ur Amphetamines Screen Not Detected (NotDetected) U Methamphetamines Scrn Not Detected (NotDetected) U Benzodiazepines Scrn Detected H (NotDetected) Urine Cocaine Screen Not Detected (NotDetected) U Marijuana (THC) Screen Not Detected (NotDetected) Serum Alcohol 83 mg/dL Disposition Clinical Impression: Psychosis, Bipolar 1 disorder, Anxiety Disposition: HOME SELF-CARE Condition: Good Instructions (If sedation given, give patient instructions): Bipolar Disorder (ED) Is patient prescribed a controlled substance at d/c from ED?: No Referrals: Kd Mayfield MD [Primary Care Provider] - 1-2 days
[2019-11-19 16:15] LABS: Basophils # (A) 0.1 k/uL (0-0.2); Basophils % (A) 1 %; Eosinophils # (A) 0.3 k/uL (0-0.7); Eosinophils % (A) 3 %; HCT 43.7 % (39.0-53.0); HGB 15.1 gm/dL (13.0-17.5); Lymphocytes # (A) 2.2 k/uL (1.0-4.8); Lymphocytes % (A) 19 %; MCH 31.6 pg (25.0-35.0); MCHC 34.6 g/dL (31.0-37.0); MCV 91.3 fL (80.0-100.0); Mean Platelet Volume 6.7; Monocytes # (A) 0.5 k/uL (0-1.0); Monocytes % (A) 5 %; Neutrophils # (A) 8.2 k/uL (1.3-7.7); Neutrophils % (A) 72 %; Platelet Count 201 k/uL (150-450); RBC 4.78 m/uL (4.30-5.90); RDW 12.1 % (11.5-15.5); WBC 11.5 k/uL (3.8-10.6)
[2019-11-19 16:17] LABS: Appearance,Urine Clear (Clear); Bilirubin,Urine Negative (Negative); Blood,Urine Trace (Negative); Color,Urine Light Yellow; Glucose,Urine (UA) Negative (Negative); Ketones,Urine Negative (Negative); Leukocyte Esterase,Urine Negative (Negative); Mucus,Urine Rare /hpf; Nitrite,Urine Negative (Negative); Protein,Urine Negative (Negative); Specific Gravity,Urine 1.006 (1.001-1.035); Urobilinogen,Urine <2.0 mg/dL (<2.0); WBC,Urine 1 /hpf (0-5)
[2019-11-19 16:24] LABS: Acetaminophen <10.0 ug/mL; African American GFR (CKD) >90 (>60 ml/min/1.73 sqM); Anion Gap 6 mmol/L; Blood Urea Nitrogen 9 mg/dL (9-20); Calcium 8.8 mg/dL (8.4-10.2); Carbon Dioxide 19 mmol/L (22-30); Chloride 104 mmol/L (98-107); Glucose 96 mg/dL (74-99); Non-African American GFR(CKD) >90 (>60 ml/min/1.73 sqM); Salicylate <1.0 mg/dL; Sodium 129 mmol/L (137-145)
[2019-11-19 16:25] LABS: Potassium 4.2 mmol/L (3.5-5.1)
[2019-11-19 16:26] LABS: Alcohol 83 mg/dL
[2019-11-19 16:29] LABS: Amphetamine Screen,Urine Not Detected (NotDetected); Barbiturate Screen,Urine Not Detected (NotDetected); Benzodiazepines Screen,Urine Detected (NotDetected); Cocaine Screen,Urine Not Detected (NotDetected); Methadone Screen, Urine Not Detected (NotDetected); Opiate Screen,Urine Not Detected (NotDetected); Oxycodone Screen, Urine Not Detected (NotDetected); Phencyclidine Screen,Urine Not Detected (NotDetected); Tricyclic Antidepressant,Urine Not Detected (NotDetected); Urn Cannabinoid Scrn Not Detected (NotDetected)
[2019-11-19] MEDS ORDERED: LORazepam 1 MG TAB PO STA ×2 (18:40)
[2019-11-19 18:53] VITALS: BP 122/71; PULSE 79; RESP 14; TEMP 97.9
== END 2019-11-19 18:58 | disposition home or self-care (01) ==
LOC: EC 15:44
DX: F41.9 Anxiety disorder, unspecified (principal); F31.9 Bipolar disorder, unspecified; F29 Unspecified psychosis not due to a substance or known physiological condition; F10.129 Alcohol abuse with intoxication, unspecified; I10 Essential (primary) hypertension; E78.5 Hyperlipidemia, unspecified; I20.9 Angina pectoris, unspecified; F17.200 Nicotine dependence, unspecified, uncomplicated; Z79.899 Other long term (current) drug therapy; Z96.642 Presence of left artificial hip joint; Y90.9 Presence of alcohol in blood, level not specified
CPT/HCPCS: 36415; 80048; 80306; 80320; 80329; 81001; 82075; 83520; 85025; 99285

== ENCOUNTER 2020-01-12 13:44 | Emergency (ER) | payer BC ==
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
[2020-01-12 15:38] LABS: African American GFR (CKD) >90 (>60 ml/min/1.73 sqM); Alcohol <10 mg/dL; Anion Gap 8 mmol/L; Blood Urea Nitrogen 8 mg/dL (9-20); Calcium 9.5 mg/dL (8.4-10.2); Carbon Dioxide 22 mmol/L (22-30); Chloride 106 mmol/L (98-107); Glucose 99 mg/dL (74-99); Non-African American GFR(CKD) >90 (>60 ml/min/1.73 sqM); Sodium 136 mmol/L (137-145)
[2020-01-12 15:39] LABS: Phencyclidine Screen,Urine Not Detected (NotDetected); Urn Cannabinoid Scrn Not Detected (NotDetected)
[2020-01-12 15:40] LABS: Amphetamine Screen,Urine Not Detected (NotDetected); Barbiturate Screen,Urine Not Detected (NotDetected); Benzodiazepines Screen,Urine Not Detected (NotDetected); Cocaine Screen,Urine Not Detected (NotDetected); Methadone Screen, Urine Not Detected (NotDetected); Opiate Screen,Urine Detected (NotDetected); Oxycodone Screen, Urine Not Detected (NotDetected); Tricyclic Antidepressant,Urine Detected (NotDetected)
--- NOTE | 2020-01-12 15:49 | CT ---
EXAMINATION TYPE: CT brain wo con DATE OF EXAM: 01/12/2020 HISTORY: Altered mental status. CT DLP: 1107.4 mGycm. Automated Exposure Control for Dose Reduction was Utilized. TECHNIQUE: CT scan of the head is performed without contrast. COMPARISON: None. FINDINGS: There is no acute intracranial hemorrhage or midline shift identified. There is mild to m oderate diffuse ventricular and sulcal prominence consistent radius over the bilateral frontal lobes. Lopez-white matter differentiation fairly well maintained. Slightly low-lying cerebellar tonsils into foramen magnum but not greater than 5 mm inferior descent. The globes are intact and the visualized sinuses are clear. IMPRESSION: No acute intracranial hemorrhage or midline shift. There is mild to moderate diffuse ce rebral atrophy greatest over the bilateral frontal lobes.
[2020-01-12 15:57] LABS: Basophils # (A) 0.1 k/uL (0-0.2); Basophils % (A) 1 %; Eosinophils # (A) 0.2 k/uL (0-0.7); Eosinophils % (A) 2 %; HCT 43.6 % (39.0-53.0); HGB 14.8 gm/dL (13.0-17.5); Lymphocytes % (A) 21 %; MCH 30.3 pg (25.0-35.0); MCHC 33.8 g/dL (31.0-37.0); MCV 89.4 fL (80.0-100.0); Mean Platelet Volume 7.1; Monocytes # (A) 0.4 k/uL (0-1.0); Monocytes % (A) 5 %; Neutrophils # (A) 6.7 k/uL (1.3-7.7); Neutrophils % (A) 70 %; Platelet Count 240 k/uL (150-450); RBC 4.87 m/uL (4.30-5.90); RDW 12.5 % (11.5-15.5); WBC 9.5 k/uL (3.8-10.6)
[2020-01-12 17:30] VITALS: BP 155/92; PULSE 95; RESP 18; TEMP 98.2
== END 2020-01-12 17:39 | disposition home or self-care (01) ==
LOC: EC 13:44
DX: Z03.818 Encounter for observation for suspected exposure to other biological agents ruled out (principal); F91.9 Conduct disorder, unspecified; E78.5 Hyperlipidemia, unspecified; I10 Essential (primary) hypertension; I25.2 Old myocardial infarction; F17.200 Nicotine dependence, unspecified, uncomplicated; F31.9 Bipolar disorder, unspecified; Z79.899 Other long term (current) drug therapy; Z95.5 Presence of coronary angioplasty implant and graft; Z87.820 Personal history of traumatic brain injury; Z96.642 Presence of left artificial hip joint
CPT/HCPCS: 36415; 70450; 80048; 80306; 80320; 82075; 85025; 87635; 93005; 99285

== ENCOUNTER 2020-01-15 02:03 | Inpatient (IN) | payer BC ==
--- NOTE | 2020-01-15 02:28 | ED ---
SOB HPI - General Stated Complaint: Mental Health Time Seen by Provider: 01/15/20 02:27 Source: RN notes reviewed, old records reviewed Limitations: altered mental status - History of Present Illness Initial Comments: This is a 59-year-old male DF for evaluation, patient's brought in by PD under petition for mental health evaluation secondary to both homicidal and suicidal thoughts Complaint: anxiety -: unknown Severity: mild Consistency: constant Improves With: nothing Worsens With: nothing Associated Symptoms: denies other symptoms Treatments Prior to Arrival: none - Related Data Home Medications Medication Instructions Recorded Confirmed Nitroglycerin Sl Tabs [Nitrostat] 0.4 mg SUBLINGUAL Q5M PRN 01/11/18 01/15/20 Previous Rx's Medication Instructions Recorded Acetaminophen Tab [Tylenol] 650 mg PO Q4HR PRN tab 10/27/19 Albuterol Inhaler [Ventolin Hfa 2 puff INHALATION RT-TID 30 Days 01/18/20 Inhaler] puff Aspirin 81 mg PO DAILY 30 Days chew 01/18/20 Atorvastatin [Lipitor] 40 mg PO DAILY 30 Days tab 01/18/20 Isosorbide Mononitrate ER [Imdur] 30 mg PO DAILY 30 Days tab.er.24h 01/18/20 Metoprolol Succinate (ER) [Toprol 50 mg PO DAILY 30 Days tab.er.24h 01/18/20 XL] Mirtazapine [Remeron] 15 mg PO HS 30 Days tab 01/18/20 Nicotine 21Mg/24Hr Patch [Habitrol] 1 patch TRANSDERM DAILY 30 Days 01/18/20 patch amLODIPine [Norvasc] 5 mg PO HS 30 Days tab 01/18/20 risperiDONE [RisperDAL] 1.5 mg PO BID 30 Days tab 01/18/20 Allergies Allergy/AdvReac Type Severity Reaction Status Date / Time No Known Allergies Allergy Verified 01/15/20 06:45 Review of Systems ROS Statement: Those systems with pertinent positive or pertinent negative responses have been documented in the HPI. ROS Other: All systems not noted in ROS Statement are negative. Past Medical History Past Medical History: Chest Pain / Angina, Hyperlipidemia, Hypertension Additional Past Medical History / Comment(s): Brain injury History of Any Multi-Drug Resistant Organisms: None Reported Past Surgical History: Heart Catheterization With Stent, Hernia Repair, Joint Replacement, Orthopedic Surgery Additional Past Surgical History / Comment(s): LT RONAK,rt ankle,. RT SHOULDER SX. COLONOSCOPY Past Anesthesia/Blood Transfusion Reactions: No Reported Reaction Date of Last Stent Placement:: 01-14-18 Past Psychological History: Bipolar Smoking Status: Current every day smoker Past Alcohol Use History: Occasional Past Drug Use History: None Reported - Past Family History Father Family Medical History: Cancer General Exam General appearance: alert, in no apparent distress Head exam: Present: atraumatic, normocephalic, normal inspection Eye exam: Present: normal appearance, PERRL, EOMI. Absent: scleral icterus, conjunctival injection, periorbital swelling ENT exam: Present: normal exam, mucous membranes moist Neck exam: Present: normal inspection. Absent: tenderness, meningismus, lymphadenopathy Respiratory exam: Present: normal lung sounds bilaterally. Absent: respiratory distress, wheezes, rales, rhonchi, stridor Cardiovascular Exam: Present: normal rhythm, tachycardia, normal heart sounds. Absent: systolic murmur, diastolic murmur, rubs, gallop, clicks GI/Abdominal exam: Present: soft, normal bowel sounds. Absent: distended, tende rness, guarding, rebound, rigid Extremities exam: Present: normal inspection, full ROM, normal capillary refill. Absent: tenderness, pedal edema, joint swelling, calf tenderness Back exam: Present: normal inspection Neurological exam: Present: alert, oriented X3, CN II-XII intact Psychiatric exam: Present: normal affect, normal mood Skin exam: Present: warm, dry, intact, normal color. Absent: rash Course Vital Signs 01/15/20 01/15/20 01/15/20 02:25 07:00 09:00 Temperature 98.6 F 98.0 F Pulse Rate 115 H 96 89 Respiratory 18 18 18 Rate Blood Pressure 139/87 141/96 138/88 O2 Sat by Pulse 97 97 97 Oximetry - Reevaluation(s) Reevaluation #1: 01/15/20 02:39 Medical record is reviewed 01/15/20 02:39 Medical clear for psychiatric evaluation Medical Decision Making - Medical Decision Making 59 male transferred for inpatient psychiatric evaluation and treatment - Lab Data Result diagrams: 01/15/20 02:27 01/16/20 06:38 Lab Results 01/15/20 01/15/20 01/15/20 Range/Units 02:27 02:27 02:27 WBC 8.2 (3.8-10.6) k/uL RBC 5.33 (4.30-5.90) m/uL Hgb 16.5 (13.0-17.5) gm/dL Hct 47.3 (39.0-53.0) % MCV 88.6 (80.0-100.0) fL MCH 30.9 (25.0-35.0) pg MCHC 34.9 (31.0-37.0) g/dL RDW 12.2 (11.5-15.5) % Plt Count 247 (150-450) k/uL MPV 6.8 Neutrophils % 62 % Lymphocytes % 27 % Monocytes % 5 % Eosinophils % 4 % Basophils % 1 % Neutrophils # 5.0 (1.3-7.7) k/uL Lymphocytes # 2.2 (1.0-4.8) k/uL Monocytes # 0.4 (0-1.0) k/uL Eosinophils # 0.3 (0-0.7) k/uL Basophils # 0.1 (0-0.2) k/uL Sodium 136 L (137-145) mmol/L Potassium 4.4 (3.5-5.1) mmol/L Chloride 107 (98-107) mmol/L Carbon Dioxide 21 L (22-30) mmol/L Anion Gap 8 mmol/L BUN 5 L (9-20) mg/dL Creatinine 0.64 L (0.66-1.25) mg/dL Est GFR (CKD-EPI)AfAm >90 (>60 ml/min/1.73 sqM) Est GFR (CKD-EPI)NonAf >90 (>60 ml/min/1.73 sqM) Glucose 124 H (74-99) mg/dL Calcium 9.4 (8.4-10.2) mg/dL Urine Color Colorless Urine Appearance Clear (Clear) Urine pH 6.0 (5.0-8.0) Ur Specific [place] 1.003 (1.001-1.035) Urine Protein Negative (Negative) Urine Glucose (UA) Negative (Negative) Urine Ketones Negative (Negative) Urine Blood Negative (Negative) Urine Nitrite Negative (Negative) Urine Bilirubin Negative (Negative) Urine Urobilinogen <2.0 (<2.0) mg/dL Ur Leukocyte Esterase Negative (Negative) Salicylates <1.0 mg/dL Urine Opiates Screen Detected H (NotDetected) Ur Oxycodone Screen Not Detected (NotDetected) Urine Methadone Screen Not Detected (NotDetected) Ur Propoxyphene Screen Not Detected (NotDetected) Acetaminophen <10.0 ug/mL Ur Barbiturates Screen Not Detected (NotDetected) U Tricyclic Antidepress Detected H (NotDetected) Ur Phencyclidine Scrn Not Detected (NotDetected) Ur Amphetamines Screen Not Detected (NotDetected) U Methamphetamines Scrn Not Detected (NotDetected) U Benzodiazepines Scrn Detected H (NotDetected) Urine Cocaine Screen Not Detected (NotDetected) U Marijuana (THC) Screen Not Detected (NotDetected) Serum Alcohol <10 mg/dL Coronavirus (PCR) (Not Detectd) 01/15/20 Range/Units 06:58 WBC (3.8-10.6) k/uL RBC (4.30-5.90) m/uL Hgb (13.0-17.5) gm/dL Hct (39.0-53.0) % MCV (80.0-100.0) fL MCH (25.0-35.0) pg MCHC (31.0-37.0) g/dL RDW (11.5-15.5) % Plt Count (150-450) k/uL MPV Neutrophils % % Lymphocytes % % Monocytes % % Eosinophils % % Basophils % % Neutrophils # (1.3-7.7) k/uL Lymphocytes # (1.0-4.8) k/uL Monocytes # (0-1.0) k/uL Eosinophils # (0-0.7) k/uL Basophils # (0-0.2) k/uL Sodium (137-145) mmol/L Potassium (3.5-5.1) mmol/L Chloride (98-107) mmol/L Carbon Dioxide (22-30) mmol/L Anion Gap mmol/L BUN (9-20) mg/dL Creatinine (0.66-1.25) mg/dL Est GFR (CKD-EPI)AfAm (>60 ml/min/1.73 sqM) Est GFR (CKD-EPI)NonAf (>60 ml/min/1.73 sqM) Glucose (74-99) mg/dL Calcium (8.4-10.2) mg/dL Urine Color Urine Appearance (Clear) Urine pH (5.0-8.0) Ur Specific [place] (1.001-1.035) Urine Protein (Negative) Urine Glucose (UA) (Negative) Urine Ketones (Negative) Urine Blood (Negative) Urine Nitrite (Negative) Urine Bilirubin (Negative) Urine Urobilinogen (<2.0) mg/dL Ur Leukocyte Esterase (Negative) Salicylates mg/dL Urine Opiates Screen (NotDetected) Ur Oxycodone Screen (NotDetected) Urine Methadone Screen (NotDetected) Ur Propoxyphene Screen (NotDetected) Acetaminophen ug/mL Ur Barbiturates Screen (NotDetected) U Tricyclic Antidepress (NotDetected) Ur Phencyclidine Scrn (NotDetected) Ur Amphetamines Screen (NotDetected) U Methamphetamines Scrn (NotDetected) U Benzodiazepines Scrn (NotDetected) Urine Cocaine Screen (NotDetected) U Marijuana (THC) Screen (NotDetected) Serum Alcohol mg/dL Coronavirus (PCR) Not Detected (Not Detectd) Disposition Clinical Impression: Psychosis, Bipolar 1 disorder Disposition: TRANSFER TO PSYCH HOSP/UNIT Condition: Stable Is patient prescribed a controlled substance at d/c from ED?: No
[2020-01-15 03:03] LABS: Appearance,Urine Clear (Clear); Basophils # (A) 0.1 k/uL (0-0.2); Basophils % (A) 1 %; Bilirubin,Urine Negative (Negative); Blood,Urine Negative (Negative); Color,Urine Colorless; Eosinophils # (A) 0.3 k/uL (0-0.7); Eosinophils % (A) 4 %; Glucose,Urine (UA) Negative (Negative); HCT 47.3 % (39.0-53.0); HGB 16.5 gm/dL (13.0-17.5); Ketones,Urine Negative (Negative); Leukocyte Esterase,Urine Negative (Negative); Lymphocytes # (A) 2.2 k/uL (1.0-4.8); Lymphocytes % (A) 27 %; MCH 30.9 pg (25.0-35.0); MCHC 34.9 g/dL (31.0-37.0); MCV 88.6 fL (80.0-100.0); Mean Platelet Volume 6.8; Monocytes # (A) 0.4 k/uL (0-1.0); Monocytes % (A) 5 %; Neutrophils % (A) 62 %; Nitrite,Urine Negative (Negative); Platelet Count 247 k/uL (150-450); Protein,Urine Negative (Negative); RBC 5.33 m/uL (4.30-5.90); RDW 12.2 % (11.5-15.5); Specific Gravity,Urine 1.003 (1.001-1.035); Urobilinogen,Urine <2.0 mg/dL (<2.0); WBC 8.2 k/uL (3.8-10.6)
[2020-01-15 03:12] LABS: Acetaminophen <10.0 ug/mL; African American GFR (CKD) >90 (>60 ml/min/1.73 sqM); Alcohol <10 mg/dL; Anion Gap 8 mmol/L; Blood Urea Nitrogen 5 mg/dL (9-20); Calcium 9.4 mg/dL (8.4-10.2); Carbon Dioxide 21 mmol/L (22-30); Chloride 107 mmol/L (98-107); Glucose 124 mg/dL (74-99); Non-African American GFR(CKD) >90 (>60 ml/min/1.73 sqM); Potassium 4.4 mmol/L (3.5-5.1); Salicylate <1.0 mg/dL; Sodium 136 mmol/L (137-145)
[2020-01-15 03:14] LABS: Amphetamine Screen,Urine Not Detected (NotDetected); Barbiturate Screen,Urine Not Detected (NotDetected); Benzodiazepines Screen,Urine Detected (NotDetected); Cocaine Screen,Urine Not Detected (NotDetected); Methadone Screen, Urine Not Detected (NotDetected); Opiate Screen,Urine Detected (NotDetected); Oxycodone Screen, Urine Not Detected (NotDetected); Phencyclidine Screen,Urine Not Detected (NotDetected); Tricyclic Antidepressant,Urine Detected (NotDetected); Urn Cannabinoid Scrn Not Detected (NotDetected)
[2020-01-15] MEDS ORDERED: LORazepam 1 MG TAB PO STA (06:42)
[2020-01-15] MEDS ORDERED: MAGNESIUM HYDROXIDE 2,400 MG/10 ML CUP PO PRN (09:16)
[2020-01-15] MEDS ORDERED: MAG HYDROX/AL HYDROX/SIMETH 30 ML CUP PO PRN (09:16)
[2020-01-15] MEDS ORDERED: ACETAMINOPHEN TAB 325 MG TAB PO PRN (09:16)
[2020-01-15] MEDS ORDERED: LORazepam 2 MG/ML INJ IM PRN (09:19)
[2020-01-15] MEDS ORDERED: HALOPERIDOL LACTATE 5 MG/ML 1 ML VIAL IM PRN (09:20)
[2020-01-15] MEDS ORDERED: NITROGLYCERIN SL TABS 0.4 MG TAB SUBLINGUAL PRN (09:21)
[2020-01-15] MEDS ORDERED: NICOTINE 21MG/24HR PATCH TRANSDERM SCH (09:30)
[2020-01-15] MEDS: NICOTINE 21MG/24HR PATCH TRANSDERM SCH (10:49)
[2020-01-15] MEDS: METOPROLOL SUCCINATE (ER) 50 MG TAB.ER.24H PO SCH (10:54)
[2020-01-15] MEDS: ATORVASTATIN 40 MG TAB PO SCH (10:54)
[2020-01-15] MEDS: ISOSORBIDE MONONITRATE ER 30 MG TAB.ER.24H PO SCH (10:54)
[2020-01-15] MEDS: ASPIRIN 81 MG PO SCH (10:54)
--- NOTE | 2020-01-15 13:14 | P.HP ---
Psychiatric H&P - . H&P Date: 01/15/20 History & Physical: Allergies Allergy/AdvReac Type Severity Reaction Status Date / Time No Known Allergies Allergy Verified 01/15/20 06:45 Vital Signs Temp 97.4 F L 01/15/20 09:45 Pulse 96 01/15/20 09:45 Resp 18 01/15/20 09:45 BP 135/77 01/15/20 09:45 Pulse Ox 97 01/15/20 09:45 Intake & Output 01/14/20 01/15/20 01/15/20 18:59 06:59 18:59 Weight 95.254 kg 94.9 kg Laboratory Last Values WBC 8.2 k/uL (3.8-10.6) 01/15/20 02:27 RBC 5.33 m/uL (4.30-5.90) 01/15/20 02:27 Hgb 16.5 gm/dL (13.0-17.5) 01/15/20 02:27 Hct 47.3 % (39.0-53.0) 01/15/20 02:27 MCV 88.6 fL (80.0-100.0) 01/15/20 02:27 MCH 30.9 pg (25.0-35.0) 01/15/20 02:27 MCHC 34.9 g/dL (31.0-37.0) 01/15/20 02:27 RDW 12.2 % (11.5-15.5) 01/15/20 02:27 Plt Count 247 k/uL (150-450) 01/15/20 02:27 MPV 6.8 01/15/20 02:27 Neutrophils % 62 % 01/15/20 02:27 Lymphocytes % 27 % 01/15/20 02:27 Monocytes % 5 % 01/15/20 02:27 Eosinophils % 4 % 01/15/20 02:27 Basophils % 1 % 01/15/20 02:27 Neutrophils # 5.0 k/uL (1.3-7.7) 01/15/20 02:27 Lymphocytes # 2.2 k/uL (1.0-4.8) 01/15/20 02:27 Monocytes # 0.4 k/uL (0-1.0) 01/15/20 02:27 Eosinophils # 0.3 k/uL (0-0.7) 01/15/20 02:27 Basophils # 0.1 k/uL (0-0.2) 01/15/20 02:27 Sodium 136 mmol/L (137-145) L 01/15/20 02:27 Potassium 4.4 mmol/L (3.5-5.1) 01/15/20 02:27 Chloride 107 mmol/L (98-107) 01/15/20 02:27 Carbon Dioxide 21 mmol/L (22-30) L 01/15/20 02:27 Anion Gap 8 mmol/L 01/15/20 02:27 BUN 5 mg/dL (9-20) L 01/15/20 02:27 Creatinine 0.64 mg/dL (0.66-1.25) L 01/15/20 02:27 Est GFR (CKD-EPI)AfAm >90 (>60 ml/min/1.73 sqM) 01/15/20 02:27 Est GFR (CKD-EPI)NonAf >90 (>60 ml/min/1.73 sqM) 01/15/20 02:27 Glucose 124 mg/dL (74-99) H 01/15/20 02:27 Calcium 9.4 mg/dL (8.4-10.2) 01/15/20 02:27 Urine Color Colorless 01/15/20 02:27 Urine Appearance Clear (Clear) 01/15/20 02:27 Urine pH 6.0 (5.0-8.0) 01/15/20 02:27 Ur Specific [place] 1.003 (1.001-1.035) 01/15/20 02:27 Urine Protein Negative (Negative) 01/15/20 02:27 Urine Glucose (UA) Negative (Negative) 01/15/20 02:27 Urine Ketones Negative (Negative) 01/15/20 02:27 Urine Blood Negative (Negative) 01/15/20 02:27 Urine Nitrite Negative (Negative) 01/15/20 02:27 Urine Bilirubin Negative (Negative) 01/15/20 02:27 Urine Urobilinogen <2.0 mg/dL (<2.0) 01/15/20 02:27 Ur Leukocyte Esterase Negative (Negative) 01/15/20 02:27 Salicylates <1.0 mg/dL 01/15/20 02:27 Urine Opiates Screen Detected (NotDetected) H 01/15/20 02:27 Ur Oxycodone Screen Not Detected (NotDetected) 01/15/20 02:27 Urine Methadone Screen Not Detected (NotDetected) 01/15/20 02:27 Ur Propoxyphene Screen Not Detected (NotDetected) 01/15/20 02:27 Acetaminophen <10.0 ug/mL 01/15/20 02:27 Ur Barbiturates Screen Not Detected (NotDetected) 01/15/20 02:27 U Tricyclic Antidepress Detected (NotDetected) H 01/15/20 02:27 Ur Phencyclidine Scrn Not Detected (NotDetected) 01/15/20 02:27 Ur Amphetamines Screen Not Detected (NotDetected) 01/15/20 02:27 U Methamphetamines Scrn Not Detected (NotDetected) 01/15/20 02:27 U Benzodiazepines Scrn Detected (NotDetected) H 01/15/20 02:27 Urine Cocaine Screen Not Detected (NotDetected) 01/15/20 02:27 U Marijuana (THC) Screen Not Detected (NotDetected) 01/15/20 02:27 Serum Alcohol <10 mg/dL 01/15/20 02:27 Coronavirus (PCR) Not Detected (Not Detectd) 01/15/20 06:58 01/15/20 11:47 IDENTIFYING DATA: Patient is a , unemployed, 59-year-old male admitted for psychosis and suicidal ideation. HPI: Patient presented to the hospital on 01/15/2020, brought in by police after he was petitioned by his . His writes in the petition that the patient has been delusional, responding to internal stimuli, violent, angry, paranoid, and not eating and not sleeping. He was also reportedly threatening his . Patient reports that he was brought to the hospital by police who woke him up while he was sleeping. He states that he was brought to the hospital because his was afraid that he was taking her and her "evil" down. He states that his is possessed by demons and these different colors to her present their homes. He states that he's been believing this since October. He does endorse significant psychotic symptoms including paranoia, ideas of reference, and possible auditory hallucinations. He states that he receives messages from the radio and television that tell him to "be brave." He further reports that he is able to read other peoples minds and other people are able to read his. In regards to mood, the patient is not reporting any significant symptoms of depression or bipolar disorder at this time. He is reporting no suicidal or homicidal ideation, intention, and/or plan. He reports no increased goal- directed behavior, periods of excessive energy, or grandiosity. The patient was most recently prescribed Invega and Zyprexa but states that he has not been taking this medication for the past 2 weeks as he has not had any refills. In regards to substance use, the patient does report smoking 1-2 packs per day of tobacco. He reports drinking 3 beers per day. He denies any marijuana or illicit drug use. PAST PSYCHIATRIC HISTORY: Patient states that he has been diagnosed with schizophrenia, schizoaffective disorder, and bipolar disorder in the past. He is able to recall Wellbutrin, Prozac, Haldol, lithium, Tofranil, Zyprexa, and lorazepam, and states that he was last receiving Invega and latuda. He reports he was last hospitalized 1 month ago in [place]. He has had multiple inpatient psychiatric hospitalizations over the years including 1979, 1995, 2000, last month, and was admitted to 3 [facility] this past october. Patient denies any psychiatric outpatient follow-up. Patient denies any history of suicide attempts in the past. PMH: Hyperlipidemia, hypertension, history of TBI ALLERGIES: No known ALLERGIES CHEMICAL DEPENDENCY HISTORY: 1-2 packs per day of tobacco. 3 beers per day. Denies marijuana or illicit drug use. FAMILY PSYCHIATRIC/SUBSTANCE USE HISTORY: denies SOCIAL HISTORY: Patient is currently living in [place] with his of 33 years. He reports that this is his second . He has his GED and an associates degree in occupational therapy. He previously worked as a commercial trailer truck driver. He reports having 6 children. He was born and raised in [place], [place]. MENTAL STATUS EXAM: General Appearance: Patient appears to be stated age is alert, directable, and attempts to cooperate. Patient appears to have fair hygiene and grooming. He has tattoos on his bilateral upper extremities. Behavior: Patient is seated without any agitated behavior. Psychomotor activity appears slow. Speech: Patient's speech is low in volume, and nonspontaneous, but fluent and nonpressured. Mood/Affect: Patient reports their mood is "okay," affect is euthymic but blunted in range. Suicidality/Homicidality: Patient denies both suicidal and homicidal ideation, intention, and/or plan. Perceptions: Patient denies any visual hallucinations. He does endorse auditory hallucinations. Though content/process: Delusional thought content is evident. Thought insertion, thought deletion, thought projection, ideas of reference, which is preoccupation. Memory and concentration: AOX3, grossly intact for the purposes of this session. Can spell "WORLD" backwards Judgment and insight: poor STRENGTHS/WEAKNESSES: Strength is that patient has stable housing. Weakness is that patient has poor insight and nonadherence with treatment. INTELLECT: average IMPRESSIONS: Schizophrenia Nicotine dependence PLAN: -Patient is admitted under involuntary status to MHU for stabilization of psychiatric symptoms and safety. A second certification was completed and along with petition will be filed for court. -Patient will sign a TIMI for his to obtain collateral information and determine safe discharge. -Medications : Will start patient on Risperdal 0.5 mg by mouth twice a day for psychosis -Ativan and Haldol PRN for agitation/aggression -Patient was counselled on substance abuse and desired to cut back on use -Patient was informed of the risks, benefits and side effects of the medication and patient verbally consented to taking the medications. Patient signed med consent form and was placed in chart. -Internal Medicine consult to perform medical evaluation and physical. -NRT - nicotine patch -SW on board for discharge planning. Encourage patient to participate in groups to work on coping skills. 01/15/20 13:10
[2020-01-15] MEDS: ALBUTEROL INHALER 60 PUFF/8 GM INHALER (MHU) INHALATION SCH ×2 (16:36→17:55)
--- NOTE | 2020-01-15 20:41 | P.CONS ---
History of Present Illness - Reason for Consult Consult date: 01/15/20 medical management Requesting physician: Pepito Sarabia - Chief Complaint abnormal thinking - History of Present Illness Consultation: This is a pleasant 59-year-old patient of Dr. hicks. Chronic stable medical conditions include coronary artery disease with a stent in 2018, hypertension, hyperlipidemia.smoker. patient is brought into the hospital admission by his with the bolus. The multiple symptoms including delusions hallucinations including paranoia and thoughts about demons. More details and the psychiatry H&P. Patient denies any chest pain. No shortness. Appetite is good. No change in bowel habits. No pain. No trouble walking. Has continued to smoke. Review of systems: GEN.: None EYES: None HEENT: None NECK: None RESPIRATORY: Occasional wheezing CARDIOVASCULAR: None GASTROINTESTINAL: None GENITOURINARY: None MUSCULOSKELETAL: None LYMPHATICS: None HEMATOLOGICAL: None PSYCHIATRY: As above NEUROLOGICAL: None Past medical history to include: Coronary artery disease with stent, hypertension, hyperlipidemia, bipolar. Social history: Smokes anywhere from half to a pack a day for close to 43 years. No alcohol. . unemployed. Physical examination: VITAL SIGNS: 97.4, 96, 18, 135/77, 97% room air GENERAL: BMI 29.2, sitting in a chair, drinking coffee, comfortable. EYES: Pupils equal. Conjunctiva normal. HEENT: External appearance of nose and ears normal, oral cavity grossly normal. NECK: JVD not raised; masses not palpable. HEART: First and second heart sounds are normal; no edema. LUNGS: Respiratory rate normal; decreased breath sounds, ABDOMEN: Soft, nontender, liver spleen not palpable, no masses palpable. PSYCH: answering questionsl. NEUROLOGICAL: Cranial nerves grossly intact; no facial asymmetry, power and sensation grossly intact. LYMPHATICS: No lymph nodes palpable in the axilla and neck INVESTIGATIONS, reviewed in the clinical context: white count 8.2 hemoglobin 16.5 platelets 247 potassium 4.4 creatinine 0.64 urine drug screen positive for opiates, tricyclic antidepressants, benzodiazepines. Coronavirus PCR-not detected Assessment: -Bipolar disorder with kevin episode -Coronary artery disease with stent in January 2019 -Essential hypertension -Hyperlipidemia -COPD in a current smoker -Chronic nicotine dependence cigarette and cigar smoker Plan: continue home medications. Nicotine patch. Questions answered. Patient to follow-up with his family doctor for discharge. Thank you Dr. Sarabia Past Medical History Past Medical History: Chest Pain / Angina, Hyperlipidemia, Hypertension Additional Past Medical History / Comment(s): Brain injury History of Any Multi-Drug Resistant Organisms: None Reported Past Surgical History: Heart Catheterization With Stent, Hernia Repair, Joint Replacement, Orthopedic Surgery Additional Past Surgical History / Comment(s): LT RONAK,rt ankle,. RT SHOULDER SX. COLONOSCOPY Past Anesthesia/Blood Transfusion Reactions: No Reported Reaction Date of Last Stent Placement:: 01-14-18 Past Psychological History: Bipolar Smoking Status: Current every day smoker Past Alcohol Use History: Occasional Additional Past Alcohol Use History / Comment(s): SMOKES ABOUT 1/2PPD SINCE AGE 17. states "drinks less than 14 drinks per week usually" Past Drug Use History: None Reported - Past Family History Father Family Medical History: Cancer Medications and Allergies Home Medications Medication Instructions Recorded Confirmed Type Atorvastatin Calcium [Lipitor] 40 mg PO DAILY 01/11/18 01/15/20 History Isosorbide Mononitrate [Isosorbide 30 mg PO DAILY 01/11/18 01/15/20 History Mononitrate ER] Metoprolol Succinate (ER) [Toprol 50 mg PO DAILY 01/11/18 01/15/20 History XL] Nitroglycerin Sl Tabs [Nitrostat] 0.4 mg SUBLINGUAL Q5M PRN 01/11/18 01/15/20 History Aspirin 81 mg PO DAILY #90 chew 01/15/18 01/15/20 Rx Acetaminophen Tab [Tylenol] 650 mg PO Q4HR PRN tab 10/27/19 01/15/20 Rx Albuterol Inhaler [Ventolin Hfa 2 puff INHALATION RT-TID #0 puff 10/27/19 01/15/20 Rx Inhaler] Lurasidone HCl [Latuda] 60 mg PO DAILY 30 Days tab 10/27/19 01/15/20 Rx Nicotine 21Mg/24Hr Patch [Habitrol] 1 patch TRANSDERM DAILY 14 Days 10/27/19 01/15/20 Rx patch amLODIPine [Norvasc] 5 mg PO HS 30 Days tab 10/27/19 01/15/20 Rx LORazepam 0.5 mg PO BID PRN 01/12/20 01/15/20 History Allergies Allergy/AdvReac Type Severity Reaction Status Date / Time No Known Allergies Allergy Verified 01/15/20 06:45 Physical Exam Vitals: Vital Signs Temp Pulse Pulse Resp BP BP Pulse Ox 01/15/20 17:55 98.3 F 01/15/20 09:45 97.4 F L 96 18 135/77 97 01/15/20 09:00 98.0 F 89 18 138/88 97 01/15/20 07:00 96 18 141/96 97 01/15/20 02:25 98.6 F 115 H 18 139/87 97 Intake and Output 01/15/20 01/15/20 01/15/20 06:59 14:59 22:59 Other: Weight 95.254 kg 94.9 kg Results CBC & Chem 7: 01/15/20 02:27 01/15/20 02:27 Labs: Abnormal Lab Results - Last 24 Hours (Table) 01/15/20 01/15/20 Range/Units 02:27 02:27 Sodium 136 L (137-145) mmol/L Carbon Dioxide 21 L (22-30) mmol/L BUN 5 L (9-20) mg/dL Creatinine 0.64 L (0.66-1.25) mg/dL Glucose 124 H (74-99) mg/dL Urine Opiates Screen Detected H (NotDetected) U Tricyclic Antidepress Detected H (NotDetected) U Benzodiazepines Scrn Detected H (NotDetected)
[2020-01-15] MEDS: amLODIPine 5 MG TAB PO SCH (20:43)
[2020-01-15] MEDS: risperiDONE 0.5 MG TAB PO SCH (20:43)
[2020-01-16 07:31] LABS: ALT 32 U/L (4-49); AST 26 U/L (17-59); African American GFR (CKD) >90 (>60 ml/min/1.73 sqM); Albumin 3.9 g/dL (3.5-5.0); Alkaline Phosphatase 123 U/L (38-126); Anion Gap 4 mmol/L; Blood Urea Nitrogen 10 mg/dL (9-20); Calcium 9.5 mg/dL (8.4-10.2); Carbon Dioxide 25 mmol/L (22-30); Chloride 108 mmol/L (98-107); Cholesterol 161 mg/dL (<200); Glucose 116 mg/dL (74-99); HDL Cholesterol 45 mg/dL (40-60); LDL Cholesterol,Calculated 95 mg/dL (0-99); Non-African American GFR(CKD) >90 (>60 ml/min/1.73 sqM); Potassium 4.7 mmol/L (3.5-5.1); Sodium 137 mmol/L (137-145); Total Bilirubin 0.5 mg/dL (0.2-1.3); Total Protein 6.6 g/dL (6.3-8.2); Triglycerides 103 mg/dL (<150)
[2020-01-16] MEDS: ASPIRIN 81 MG PO SCH (07:52)
[2020-01-16] MEDS: NICOTINE 21MG/24HR PATCH TRANSDERM SCH (07:52)
[2020-01-16] MEDS: METOPROLOL SUCCINATE (ER) 50 MG TAB.ER.24H PO SCH (07:52)
[2020-01-16] MEDS: ATORVASTATIN 40 MG TAB PO SCH (07:52)
[2020-01-16] MEDS: risperiDONE 0.5 MG TAB PO SCH (07:53)
[2020-01-16] MEDS: ISOSORBIDE MONONITRATE ER 30 MG TAB.ER.24H PO SCH (07:53)
[2020-01-16] MEDS: ALBUTEROL INHALER 60 PUFF/8 GM INHALER (MHU) INHALATION SCH ×3 (07:53→20:20)
--- NOTE | 2020-01-16 09:51 | P.PN ---
Progress Note - Text Progress Note Date: 01/16/20 Interval History: Patient was seen attending group and was directable and agreeable to speak with junior copywriter in the office. Patient reports that he feels better. He is reporting no auditory or visual hallucinations. He is denying any suicidal or homicidal ideation, intention, and/or plan. He does state that he feels "hopeless." He states that he feels like he has nothing to look forward to and is concerned about his relationship with his . When exploring the reasons for his admission, the patient recognizes that it is bizarre to believe demons and possession but that he really believes that this is real. He reports that he is eager for discharge. He has been adherent with his medications and reports no significant side effects at this time. Mental Status Exam: General Appearance: Patient appears to be stated age is alert, directable, and cooperative. Good hygiene and grooming. Behavior: Patient is calmly seated without any agitated behavior. Psychomotor activity appears normal today. Speech: Patient's speech is fluent and nonpressured. Mood/Affect: Mood is improving mildly, affect is congruent and blunted. Suicidality/Homicidality: Patient denies having any suicidal or homicidal ideation intent or plan. Perceptions: Patient denies any visual hallucinations and denies any auditory hallucinations Though content/process: Some dysphoric and delusional thought content is evident. Memory and concentration: AOX3, grossly intact for the purposes of this session Judgment and insight: Improving mildly Assessment Schizophrenia Nicotine dependence Plan: -Patient continues to meet criteria for inpatient psychiatric admission for symptom stabilization and safety. A second certification was completed yesterday and along with petition will be filed for court. -Medications: Increase Risperdal to 1 mg by mouth twice a day for psychosis -When necessary Ativan and Haldol for agitation/aggression. -NRT - nicotine patch -SW on board for discharge planning. Encouraged the patient to participate in milieu.
[2020-01-16] MEDS: risperiDONE 1 MG TAB PO SCH (20:20)
[2020-01-16] MEDS: amLODIPine 5 MG TAB PO SCH (20:20)
[2020-01-17] MEDS: LORazepam 1 MG TAB PO PRN ×3 (01:03→15:34)
[2020-01-17] MEDS: NICOTINE 21MG/24HR PATCH TRANSDERM SCH (07:58)
[2020-01-17] MEDS: ALBUTEROL INHALER 60 PUFF/8 GM INHALER (MHU) INHALATION SCH ×3 (07:58→20:47)
[2020-01-17] MEDS: ATORVASTATIN 40 MG TAB PO SCH (07:58)
[2020-01-17] MEDS: ASPIRIN 81 MG PO SCH (07:58)
[2020-01-17] MEDS: ISOSORBIDE MONONITRATE ER 30 MG TAB.ER.24H PO SCH (07:59)
[2020-01-17] MEDS: METOPROLOL SUCCINATE (ER) 50 MG TAB.ER.24H PO SCH (07:59)
[2020-01-17] MEDS: risperiDONE 1 MG TAB PO SCH ×2 (07:59→20:50)
--- NOTE | 2020-01-17 09:58 | P.PN ---
Progress Note - Text Progress Note Date: 01/17/20 Interval History: Patient was seen attending group and was directable and agreeable to speak with mortgage loan underwriter in the office. Patient continues to report increased improvement in terms of his mood and thoughts. 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 He is not reporting any suicidal or homicidal ideation, intention, and/or plan. He is currently not r eporting any auditory or visual hallucinations. He denies any paranoia or delusions. He acknowledges that he was "thinking funny thoughts "when referring to his delusions. He states that he is very good about taking his medications at home, and his delusions began worsening when he ran out of his medications. He states that he scheduled an appointment with Dr. Kay in February. He does express some difficulty sleeping last night. He reports that he feels anxious at bedtime thinking about his and their situation. Mental Status Exam: General Appearance: Patient appears to be stated age is alert, directable, and cooperative. Good hygiene and grooming. Dressed in a black scrub top and has multiple tattoos. Behavior: Patient is calmly seated without any agitated behavior. Psychomotor activity appears normal today. Speech: Patient's speech is fluent and nonpressured. More spontaneous. Mood/Affect: Mood is improving mildly, affect is congruent and constricted. Suicidality/Homicidality: Patient denies having any suicidal or homicidal ideation intent or plan. Perceptions: Patient denies any visual hallucinations and denies any auditory hallucinations Though content/process: Mild dysphoria but no delusional thought content is endorse today. Memory and concentration: AOX3, grossly intact for the purposes of this session Judgment and insight: Improving mildly Assessment Schizophrenia Nicotine dependence Plan: -Patient continues to meet criteria for inpatient psychiatric admission for symptom stabilization and safety. -Medications: Increase Risperdal to 1.5 mg by mouth twice a day for psychosis Start Remeron 15 mg by mouth at bedtime for depression/insomnia -When necessary Ativan and Haldol for agitation/aggression. -NRT - nicotine patch -SW on board for discharge planning. Encouraged the patient to participate in milieu.
[2020-01-17 15:36] VITALS: RESP 18; TEMP 97.8
[2020-01-17] MEDS: amLODIPine 5 MG TAB PO SCH (20:49)
[2020-01-17] MEDS ORDERED: MIRTAZAPINE 15 MG TAB PO SCH (21:00)
[2020-01-18] MEDS: LORazepam 1 MG TAB PO PRN (00:11)
[2020-01-18] MEDS: ALBUTEROL INHALER 60 PUFF/8 GM INHALER (MHU) INHALATION SCH (08:42)
[2020-01-18] MEDS: METOPROLOL SUCCINATE (ER) 50 MG TAB.ER.24H PO SCH (08:43)
[2020-01-18] MEDS: ISOSORBIDE MONONITRATE ER 30 MG TAB.ER.24H PO SCH (08:43)
[2020-01-18] MEDS: ATORVASTATIN 40 MG TAB PO SCH (08:43)
[2020-01-18] MEDS: risperiDONE 1 MG TAB PO SCH (08:43)
[2020-01-18] MEDS: NICOTINE 21MG/24HR PATCH TRANSDERM SCH (08:43)
[2020-01-18] MEDS: ASPIRIN 81 MG PO SCH (08:43)
[2020-01-18 08:47] VITALS: BP 139/81; PULSE 97
--- NOTE | 2020-01-18 10:02 | P.DS ---
Providers Date of admission: 01/15/20 09:14 Expected date of discharge: 01/18/20 Attending physician: Hunter Serrato MD Consults: 01/15/20 09:16 Consult Physician Routine Consulting Provider: Yves Phipps Consult Reason/Comments: History and physical Do you want consulting provider notified?: Yes Primary care physician: Kd Mayfield - Discharge Diagnosis(es) (1) Schizophrenia Current Visit: Yes Status: Acute Priority: High (2) Nicotine dependence Current Visit: No Status: Chronic Priority: Medium Hospital Course: Admission HPI: Patient is a , unemployed, 59-year-old male admitted for psychosis and suicidal ideation. Patient presented to the hospital on 01/15/2020, brought in by police after he was petitioned by his . His writes in the petition that the patient has been delusional, responding to internal stimuli, violent, angry, paranoid, and not eating and not sleeping. He was also reportedly threatening his . Patient reports that he was brought to the hospital by police who woke him up while he was sleeping. He states that he was brought to the hospital because his was afraid that he was taking her and her "evil" down. He states that his is possessed by demons and these different colors to her present their homes. He states that he's been believing this since October. He does endorse significant psychotic symptoms including paranoia, ideas of reference, and possible auditory hallucinations. He states that he receives messages from the radio and television that tell him to "be brave." He further reports that he is able to read other peoples minds and other people are able to read his. In regards to mood, the patient is not reporting any significant symptoms of depression or bipolar disorder at this time. He is reporting no suicidal or homicidal ideation, intention, and/or plan. He reports no increased goal- directed behavior, periods of excessive energy, or grandiosity. The patient was most recently prescribed Invega and Zyprexa but states that he has not been taking this medication for the past 2 weeks as he has not had any refills. In regards to substance use, the patient does report smoking 1-2 packs per day of tobacco. He reports drinking 3 beers per day. He denies any marijuana or illicit drug use. Hospital course: Upon admission to the unit patient was initially delusional and religiously preoccupied. Patient was however directable and agreeable to commence treatment. Patient was started on Risperdal to address his psychosis. Patient spoke of his stressors and engaged in therapy both group and individual. Patient was also seen by medical team for history and physical exam. Patient got along well with other patients on the unit and followed unit protocol. Patient was compliant with the medications and denied any side effects throughout hospital course. Remeron was added to his regimen to address insomnia and depression issues. Throughout the course of the hospitalization patient gradually improved with regards to his psychosis, mood, and sleep. He became more future oriented and displayed improved insight and judgment. He expressed a strong desire to remain on medications to follow-up with his outpatient providers. The patient also took the initiative to set up an outpatient psychiatric appointment with Dr. Kay. On the day of discharge, the patient is denying any suicidal or homicidal ideation, intention, and/or plan. He is reporting no auditory or visualizations. He denies any delusions or lutheran preoccupation. Patient endorsed wanting to live for his health and family. The patient denied any access to guns or weapons. Patient does not have a significant history of substance abuse however was counseled on abstaining from all substances including alcohol and marijuana. Patient was also counseled on the medications and need for regular compliance and was encouraged to follow-up with their outpatient appointment for mental health and also for primary care. Prior to discharge a family meeting will be arranged by social work msw to answer any questions and ensure safety upon discharge. Mental status exam: General Appearance: Patient appears to be stated age is alert, pleasant, and cooperative. Patient is in no acute distress and has good hygiene and grooming Behavior: Patient is calmly seated without any agitated behavior. Speech: Patient's speech is fluent and nonpressured. Mood/Affect: Patient reports their mood is "feeling really good", affect is congruent and euthymic to bright. Suicidality/Homicidality: Patient denies having any suicidal or homicidal ideation, intention, and/or plan. Perceptions: Patient denies any auditory or visual hallucinations. Though content/process: There is no evidence of any delusional thought content and thought process is linear and goal-directed. Memory and concentration: AOX3, grossly intact for the purposes of this session. Can spell "WORLD" backwards correctly. Judgment and insight: Improved Impression: Schizophrenia Nicotine dependence Plan: -Continue with discharge today as patient has improved and stabilized psychiatrically and is not currently an imminent threat to himself and/or others. Patient will remain at chronically elevated risk for harm to self and/or others due to his history of nonadherence with treatment. -Continue medications: Risperdal 1.5 mg by mouth twice a day for psychosis Remeron 50 mg by mouth at bedtime for depression/insomnia Nicotine replacement therapy patches -Patient was counseled on the need for medication compliance and appropriate follow-up at mental health and also primary care for medical issues. Patient verbalized understanding and agreed. -Social work to arrange for and conduct family meeting to ensure safety upon discharge and answer any questions/concerns. Social work also to arrange for patients follow up appointments with his outpatient providers for psychiatric care along with follow up with primary care provider. -Patient counseled on abstaining from recreational drugs and marijuana and alcohol. Was informed/educated on the adverse effects on their physical and mental health. Patient verbally agreed and understood. -Patient was instructed to return to the hospital or seek immediate medical care if their psychiatric or medical symptoms do worsen or reoccur. -Psychoeducation and supportive therapy provided to patient. Risks and benefits of pharmacological treatment versus the risks and benefits of nontreatment weight and discussed. Informed consent discussion held. Common side effects of psychotropics discussed such as, but not limited to headache, GI disturbance, sexual dysfunction, movement disorders, sedation, and orthostatic hypotension. Life threatening and blackbox warnings of prescribed medications also discussed. Potential risks of operating a vehicle or heavy machinery discussed with patient at length. Advised on importance of compliance and a reliable and responsible manner. Patient advised to review FDA consumer labeling of all medications prior to taking. Patient verbalized understanding of potential risks, and agrees with current treatment plan. Patient advised to medically contact physician/emergency personnel if any acute changes in condition occur. Vital Signs Temp 97.8 F 01/17/20 15:35 Pulse 97 01/18/20 08:47 Resp 18 01/17/20 15:35 BP 139/81 01/18/20 08:47 Pulse Ox 98 01/16/20 06:30 Laboratory Results WBC 8.2 k/uL (3.8-10.6) 01/15/20 02:27 RBC 5.33 m/uL (4.30-5.90) 01/15/20 02:27 Hgb 16.5 gm/dL (13.0-17.5) 01/15/20 02:27 Hct 47.3 % (39.0-53.0) 01/15/20 02:27 MCV 88.6 fL (80.0-100.0) 01/15/20 02:27 MCH 30.9 pg (25.0-35.0) 01/15/20 02:27 MCHC 34.9 g/dL (31.0-37.0) 01/15/20 02:27 RDW 12.2 % (11.5-15.5) 01/15/20 02:27 Plt Count 247 k/uL (150-450) 01/15/20 02:27 MPV 6.8 01/15/20 02:27 Neutrophils % 62 % 01/15/20 02:27 Lymphocytes % 27 % 01/15/20 02:27 Monocytes % 5 % 01/15/20 02:27 Eosinophils % 4 % 01/15/20 02:27 Basophils % 1 % 01/15/20 02:27 Neutrophils # 5.0 k/uL (1.3-7.7) 01/15/20 02:27 Lymphocytes # 2.2 k/uL (1.0-4.8) 01/15/20 02:27 Monocytes # 0.4 k/uL (0-1.0) 01/15/20 02:27 Eosinophils # 0.3 k/uL (0-0.7) 01/15/20 02:27 Basophils # 0.1 k/uL (0-0.2) 01/15/20 02:27 Sodium 137 mmol/L (137-145) 01/16/20 06:38 Potassium 4.7 mmol/L (3.5-5.1) 01/16/20 06:38 Chloride 108 mmol/L (98-107) H 01/16/20 06:38 Carbon Dioxide 25 mmol/L (22-30) 01/16/20 06:38 Anion Gap 4 mmol/L 01/16/20 06:38 BUN 10 mg/dL (9-20) 01/16/20 06:38 Creatinine 0.69 mg/dL (0.66-1.25) 01/16/20 06:38 Est GFR (CKD-EPI)AfAm >90 (>60 ml/min/1.73 sqM) 01/16/20 06:38 Est GFR (CKD-EPI)NonAf >90 (>60 ml/min/1.73 sqM) 01/16/20 06:38 Glucose 116 mg/dL (74-99) H 01/16/20 06:38 Calcium 9.5 mg/dL (8.4-10.2) 01/16/20 06:38 Total Bilirubin 0.5 mg/dL (0.2-1.3) 01/16/20 06:38 AST 26 U/L (17-59) 01/16/20 06:38 ALT 32 U/L (4-49) 01/16/20 06:38 Alkaline Phosphatase 123 U/L (38-126) 01/16/20 06:38 Total Protein 6.6 g/dL (6.3-8.2) 01/16/20 06:38 Albumin 3.9 g/dL (3.5-5.0) 01/16/20 06:38 Triglycerides 103 mg/dL (<150) 01/16/20 06:38 Cholesterol 161 mg/dL (<200) 01/16/20 06:38 LDL Cholesterol, Calc 95 mg/dL (0-99) 01/16/20 06:38 HDL Cholesterol 45 mg/dL (40-60) 01/16/20 06:38 Urine Color Colorless 01/15/20 02:27 Urine Appearance Clear (Clear) 01/15/20 02:27 Urine pH 6.0 (5.0-8.0) 01/15/20 02:27 Ur Specific [place] 1.003 (1.001-1.035) 01/15/20 02:27 Urine Protein Negative (Negative) 01/15/20 02:27 Urine Glucose (UA) Negative (Negative) 01/15/20 02:27 Urine Ketones Negative (Negative) 01/15/20 02:27 Urine Blood Negative (Negative) 01/15/20 02:27 Urine Nitrite Negative (Negative) 01/15/20 02:27 Urine Bilirubin Negative (Negative) 01/15/20 02:27 Urine Urobilinogen <2.0 mg/dL (<2.0) 01/15/20 02:27 Ur Leukocyte Esterase Negative (Negative) 01/15/20 02:27 Salicylates <1.0 mg/dL 01/15/20 02:27 Urine Opiates Screen Detected (NotDetected) H 01/15/20 02:27 Ur Oxycodone Screen Not Detected (NotDetected) 01/15/20 02:27 Urine Methadone Screen Not Detected (NotDetected) 01/15/20 02:27 Ur Propoxyphene Screen Not Detected (NotDetected) 01/15/20 02:27 Acetaminophen <10.0 ug/mL 01/15/20 02:27 Ur Barbiturates Screen Not Detected (NotDetected) 01/15/20 02:27 U Tricyclic Antidepress Detected (NotDetected) H 01/15/20 02:27 Ur Phencyclidine Scrn Not Detected (NotDetected) 01/15/20 02:27 Ur Amphetamines Screen Not Detected (NotDetected) 01/15/20 02:27 U Methamphetamines Scrn Not Detected (NotDetected) 01/15/20 02:27 U Benzodiazepines Scrn Detected (NotDetected) H 01/15/20 02:27 Urine Cocaine Screen Not Detected (NotDetected) 01/15/20 02:27 U Marijuana (THC) Screen Not Detected (NotDetected) 01/15/20 02:27 Serum Alcohol <10 mg/dL 01/15/20 02:27 Coronavirus (PCR) Not Detected (Not Detectd) 01/15/20 06:58 Allergies Allergy/AdvReac Type Severity Reaction Status Date / Time No Known Allergies Allergy Verified 01/15/20 06:45 Patient Condition at Discharge: Stable Plan - Discharge Summary Discharge Rx Participant: Yes New Discharge Prescriptions: New Aspirin 81 mg PO DAILY 30 Days chew Nicotine 21Mg/24Hr Patch [Habitrol] 1 patch TRANSDERM DAILY 30 Days patch Isosorbide Mononitrate ER [Imdur] 30 mg PO DAILY 30 Days tab.er.24h Atorvastatin [Lipitor] 40 mg PO DAILY 30 Days tab Mirtazapine [Remeron] 15 mg PO HS 30 Days tab risperiDONE [RisperDAL] 1.5 mg PO BID 30 Days tab Metoprolol Succinate (ER) [Toprol XL] 50 mg PO DAILY 30 Days tab.er.24h Continue Nitroglycerin Sl Tabs [Nitrostat] 0.4 mg SUBLINGUAL Q5M PRN PRN Reason: Chest Pain Acetaminophen Tab [Tylenol] 650 mg PO Q4HR PRN tab PRN Reason: Pain/Discomfort amLODIPine [Norvasc] 5 mg PO HS 30 Days tab Albuterol Inhaler [Ventolin Hfa Inhaler] 2 puff INHALATION RT-TID 30 Days puff Discontinued Metoprolol Succinate (ER) [Toprol XL] 50 mg PO DAILY Isosorbide Mononitrate [Isosorbide Mononitrate ER] 30 mg PO DAILY Atorvastatin Calcium [Lipitor] 40 mg PO DAILY Aspirin 81 mg PO DAILY #90 chew Nicotine 21Mg/24Hr Patch [Habitrol] 1 patch TRANSDERM DAILY 14 Days patch Lurasidone HCl [Latuda] 60 mg PO DAILY 30 Days tab LORazepam 0.5 mg PO BID PRN PRN Reason: Anxiety Discharge Medication List Nitroglycerin Sl Tabs [Nitrostat] 0.4 mg SUBLINGUAL Q5M PRN 01/11/18 [History] Acetaminophen Tab [Tylenol] 650 mg PO Q4HR PRN tab 10/27/19 [Rx] Albuterol Inhaler [Ventolin Hfa Inhaler] 2 puff INHALATION RT-TID 30 Days puff 01/18/20 [Rx] Aspirin 81 mg PO DAILY 30 Days chew 01/18/20 [Rx] Atorvastatin [Lipitor] 40 mg PO DAILY 30 Days tab 01/18/20 [Rx] Isosorbide Mononitrate ER [Imdur] 30 mg PO DAILY 30 Days tab.er.24h 01/18/20 [Rx] Metoprolol Succinate (ER) [Toprol XL] 50 mg PO DAILY 30 Days tab.er.24h 01/18/20 [Rx] Mirtazapine [Remeron] 15 mg PO HS 30 Days tab 01/18/20 [Rx] Nicotine 21Mg/24Hr Patch [Habitrol] 1 patch TRANSDERM DAILY 30 Days patch 01/18/20 [Rx] amLODIPine [Norvasc] 5 mg PO HS 30 Days tab 01/18/20 [Rx] risperiDONE [RisperDAL] 1.5 mg PO BID 30 Days tab 01/18/20 [Rx] Follow up Appointment(s)/Referral(s): Tran,Kd, MD [Primary Care Provider] - 1-2 days Activity/Diet/Wound Care/Special Instructions: Activity and diet as tolerated. Avoid the use of street drugs and alcohol. Take all medications as prescribed. When you are in need of refills on your medications please contact your medical provider and/or outpatient psychiatrist to have this done. Please go to scheduled outpatient appointment for aftercare treatment. If symptoms return or become worse, call the crisis line at and/or go to the nearest emergency room for evaluation.
== END 2020-01-18 12:08 | disposition home or self-care (01) | DRG 885 ==
LOC: EC 02:03 → 3MHU 09:14
PROVIDERS: ADMIT Psychiatry & Neurology Psychiatry; ATTEND Psychiatry & Neurology Psychiatry
DX: F25.9 Schizoaffective disorder, unspecified (principal); R45.851 Suicidal ideations; F17.290 Nicotine dependence, other tobacco product, uncomplicated; F17.210 Nicotine dependence, cigarettes, uncomplicated; F41.9 Anxiety disorder, unspecified; G47.00 Insomnia, unspecified; I10 Essential (primary) hypertension; I25.10 Atherosclerotic heart disease of native coronary artery without angina pectoris; J44.9 Chronic obstructive pulmonary disease, unspecified; E78.5 Hyperlipidemia, unspecified; R45.850 Homicidal ideations; Z79.82 Long term (current) use of aspirin; Z79.899 Other long term (current) drug therapy; Z87.820 Personal history of traumatic brain injury; Z95.5 Presence of coronary angioplasty implant and graft; Z56.0 Unemployment, unspecified
CPT/HCPCS: 36415; 80048; 80053; 80061; 80306; 80320; 80329; 81003; 82075; 83520; 85025; 87635; 99285

== ENCOUNTER → 2022-06-29 | Outpatient (CLI) | payer MEDICARE ==
--- NOTE | 2022-06-29 08:24 | US ---
EXAMINATION TYPE: US liver DATE OF EXAM: 06/29/2022 COMPARISON: NONE CLINICAL INDICATION: Male, 62 years old with history of R74.01 ELEVATED LIVER LEVELS; elevated LFTs TECHNIQUE: Multiple sonographic images of the right upper quadrant are obtained. FINDINGS: EXAM MEASUREMENTS: Liver Length: 14.3 cm Gallbladder Wall: 0.17 cm CBD: 0.37 cm Right Kidney: 12.5x6.1x5.4 cm RESIDENTIAL REAL ESTATE APPRAISER NOTES: Exam slightly limited due to body habitus and overlying bowel gas Pancreas: Obscured by bowel gas Liver: Slightly increased echogenicity. No focal lesion. Gallbladder: No abnormal wall thickening. Borderline distended up to 3.9 cm wide, probably due to fa sting state. No surrounding fluid or shadowing calculi. Evidence for sonographic Estrada's sign: No CBD: wnl Right Kidney: No hydronephrosis or masses seen IMPRESSION: 1. Some limitations due to patient body habitus. The pancreas is obscured by bowel gas. 2. There may be mild hepatic steatosis. 3. No gallstones or biliary ductal dilatation.
== END | disposition home or self-care (01) ==
LOC: RADUSWWP 07:05
PROVIDERS: ATTEND Family Medicine
DX: K76.0 Fatty (change of) liver, not elsewhere classified (principal); R74.01 Elevation of levels of liver transaminase levels
CPT/HCPCS: 76705

== ENCOUNTER 2023-03-23 06:05 | Day surgery (SDC) | payer MEDICARE ==
[~2023-03-23 06:05] MED LIST changes: -ALPRAZolam 0.25 MG TAB PO PRN; -ASPIRIN 325 MG TAB PO STA; -ATORVASTATIN 80 MG TAB PO STA; +HEPARIN SODIUM,PORCINE (1 ML) 2,500 UNIT in SODIUM CHLORIDE 0.9% 250 ML IRRIGATION PRN; +HEPARIN SODIUM,PORCINE 10,000 UNIT in SODIUM CHLORIDE 0.9% 1,000 ML IRRIGATION PRN; -SODIUM CHLORIDE 0.9% 1,000 ML in EMPTY BAG 1 BAG IV ONE
[2023-03-23] MEDS: SODIUM CHLORIDE 0.9% 1,000 ML in EMPTY BAG 1 BAG IV SCH ×2 (06:51→17:21)
[2023-03-23] MEDS: ALPRAZolam 0.25 MG TAB PO PRN (06:54)
[2023-03-23] MEDS ORDERED: LIDOCAINE 1% INJ 10MG/ML (20 ML MDV) ONE (07:17)
[2023-03-23] MEDS ORDERED: VERAPAMIL 2.5 MG/ML 2 ML AMP ONE (07:17)
[2023-03-23] MEDS ORDERED: HEPARIN SODIUM 1,000 UN/ML (10ML VL) ONE (07:27)
[2023-03-23] MEDS: MIDAZOLAM 2 MG/2 ML VIAL IVP ONE ×2 (07:45→07:49)
[2023-03-23] MEDS: LIDOCAINE 1% INJ 10MG/ML (20 ML MDV) SQ ONE ×2 (07:45→07:55)
[2023-03-23] MEDS: HEPARIN SODIUM 1,000 UN/ML (10ML VL) IVP ONE (08:03)
[2023-03-23] MEDS ORDERED: TICAGRELOR 90 MG TAB ONE (08:12)
[2023-03-23] MEDS: TICAGRELOR 90 MG TAB PO ONE (08:15)
[2023-03-23] MEDS ORDERED: niCARdipine 25 MG/10 ML VIAL ONE (08:17)
[2023-03-23] MEDS: IOPAMIDOL-370 100ML BTL INJ ONE ×2 (08:20→08:29)
[2023-03-23] MEDS: NITROGLYCERIN 1000MCG/10ML SYRINGE INTRACORON ONE (08:28)
[2023-03-23] MEDS: niCARdipine Syringe (1,000 mcg/10 mL) INTRACORON ONE (08:29)
[2023-03-23] MEDS ORDERED: CYCLOBENZAPRINE 5 MG TAB PO PRN (08:35)
[2023-03-23] MEDS ORDERED: ATROPINE SULFATE 0.1 MG/ML 10ML SYRINGE IV PRN (08:36)
[2023-03-23] MEDS ORDERED: MAG HYDROX/AL HYDROX/SIMETH 30 ML CUP PO PRN (08:36)
[2023-03-23] MEDS ORDERED: ZOLPIDEM 5 MG TAB PO PRN (08:36)
[2023-03-23] MEDS ORDERED: RX INFO: IV CONTRAST WAS GIVEN 1 EACH MISC MISCELLANE PRN (08:36)
[2023-03-23] MEDS ORDERED: NITROGLYCERIN SL TABS 0.4 MG TAB SUBLINGUAL PRN (08:36)
--- NOTE | 2023-03-23 08:42 | P.PCN ---
Date of Procedure: 03/23/23 Operative Findings: CARDIAC CATHETERIZATION AND PERCUTANEOUS CORONARY INTERVENTION PERFORMING PHYSICIAN: Jeremiah Mcghee MD, [facility] PROCEDURE PERFORMED: 1. Selective right and left coronary angiogram 2. Left heart catheterization 3. Successful stenting of mid LAD using 4.0 x 15 mm Xience MC with an excellent angiographic results 4. Adjunctive use of Doppler wire and intravascular imaging 5. Ultrasound guided access of the right common femoral artery INDICATION: Symptomatic 62-year-old gentleman who underwent a stress test and that showed ischemia COMPLICATION: None APPROACH: Right common femoral artery LEVEL OF SEDATION: Moderate with the sedation time off 47 minutes PROCEDURE DESCRIPTION: After obtaining an informed consent the patient was brought to the cardiac farm laborer. The right radial artery initially was cannulated using micropuncture technique but the wire was not advanced and for that reason we aborted the right radial approach and we went from the right common femoral artery. The right common femoral artery was cannulated using micropuncture technique under ultrasound guidance the micropuncture wire passed easily then I placed a 6- Pashto 11 cm sheath in the right common femoral artery. Selective right and l eft coronary angiogram performed using JR4 and JL4 catheters. After that I did intervene on the left anterior descending artery. Left heart catheterization was performed using 6-Pashto pigtail catheter. SELECTIVE CORONARY ANGIOGRAM: The right coronary artery: Large caliber vessel and a dominant vessel was only mild disease. Left main: Is angiographically normal. Bifurcates into an LCx and LAD The left circumflex: Large caliber vessel nondominant vessel appears to have mild disease only and gives rises into a large OM branch which appears to be normal The left anterior descending artery: The proximal LAD is angiographically normal in the mid LAD by the bifurcation or after the bifurcation of a diagonal branch appeared to have a lesion in the range of 60%. The lesion documented to be flow-limiting by Doppler wire HEMODYNAMICS: The LVEDP was 13 mmHg was no significant gradient across aortic valve PCI OF THE LAD: Initially with decided to Doppler wire measurement of the LAD. After zeroing the Doppler wire and equalizing between the Doppler wire and guiding catheter which was JL4 guiding catheter left main was engaged and subsequently the LAD was wired. We did iFR and that came in to be an 0.84. Anticoagulation initiated before we started measurements using the Doppler wire was giving heparin and ACT monitoring. Subsequently I did intravascular imaging of the LAD and that showed a diameter around 3.7 mm and the artery was not fairly calcified. Predilatation was performed using 3.5 mm balloon before I deployed a 4.0 x 15 mm stent and subsequently postdilated the stent using 4.5 mm noncompliant balloon after intravascular imaging performed. Final angiogram showed NILDA 3 flow and excellent angiographic results and the procedure was completed was no complication CONCLUSION: Severe disease involving the mid LAD. I did perform successful stenting of the LAD as described above Normal left-sided filling pressure POSTPROCEDURE MANAGEMENT: 1. Dual antiplatelet therapy using aspirin and Brilinta for at least 6 month 2. Aggressive cholesterol control 3. Follow-up with the patient
[2023-03-23] MEDS: ASPIRIN 325 MG TAB PO ONE (13:37)
[2023-03-23] MEDS: ATORVASTATIN 80 MG TAB PO ONE (13:38)
[2023-03-23 15:11] VITALS: BMI 31.9
[2023-03-23] MEDS: GABAPENTIN 400 MG CAP PO SCH (17:21)
[2023-03-23] MEDS: LORazepam 1 MG TAB PO SCH (17:21)
[2023-03-23] MEDS: OXcarbazepine 150 MG TAB PO SCH (20:07)
[2023-03-23] MEDS: buPROPion SR 150 MG TABLET.ER PO SCH (20:07)
[2023-03-23] MEDS: QUEtiapine 200 MG TAB PO SCH (20:07)
[2023-03-23] MEDS: TICAGRELOR 90 MG TAB PO SCH (20:07)
[2023-03-24 04:37] LABS: African American GFR (CKD) >90 (>60 ml/min/1.73 sqM); Non-African American GFR(CKD) >90 (>60 ml/min/1.73 sqM)
[2023-03-24 08:33] VITALS: BP 153/90; PULSE 61; RESP 16; TEMP 97.6
[2023-03-24] MEDS: METOPROLOL SUCCINATE (ER) 100 MG TAB.ER.24H PO SCH (09:04)
[2023-03-24] MEDS: amLODIPine 10 MG TAB PO SCH (09:04)
[2023-03-24] MEDS: ISOSORBIDE MONONITRATE ER 60 MG TAB.ER.24H PO SCH (09:04)
[2023-03-24] MEDS: EZETIMIBE 10 MG TAB PO SCH (09:05)
[2023-03-24] MEDS: ASPIRIN 81 MG PO SCH (09:05)
== END 2023-03-24 10:23 | disposition home or self-care (01) ==
LOC: CATHCVL 06:05 → 6NMEDSUR 08:33 → CATHCVL 03-24 10:23
PROVIDERS: ATTEND Internal Medicine Interventional Cardiology
DX: I25.10 Atherosclerotic heart disease of native coronary artery without angina pectoris (principal); I38 Endocarditis, valve unspecified; I10 Essential (primary) hypertension; E78.5 Hyperlipidemia, unspecified; I77.89 Other specified disorders of arteries and arterioles; F17.210 Nicotine dependence, cigarettes, uncomplicated; Z79.82 Long term (current) use of aspirin; Z79.899 Other long term (current) drug therapy
CPT/HCPCS: 94760; 92978; 93458; 93799; 76937; 82565; C9600; C1887; C1769 ×2; C1894; C1753; C1874; C1725 ×2; J2250; S0106 ×2; J2001; J1644; Q9967; J2305